=== PATIENT | female | born 1970 | race Caucasian/White ===

== ENCOUNTER → 2018-01-23 12:26 | Outpatient (CLI) | payer OTHER, SELFPAY ==
--- NOTE | 2018-01-23 12:30 | BI_ITS ---
MAMMOGRAPHY - BILATERAL SCREENING REASON FOR EXAM: Female, 47 years old. Routine annual screening examination. PERTINENT HISTORY: Mother with breast cancer. TECHNIQUE: Digital bilateral breast me (3D mammographic acquisition) in the CC and MLO projections. 2-D mediolateral oblique (MLO) and craniocaudad (CC) views of both breasts were obtained. CAD: Full Field Digital Mammography with Computer Added Detection was performed. COMPARISON: Comparison is made with prior study dated December 22, 2016 and October 01, 2010. FINDINGS: Breast Composition: The breasts are heterogeneously dense, which may obscure small masses. There are no dominant masses or suspicious calcifications. Stable appearance of the bilateral axillary lymph nodes. No other significant abnormalities are identified. There has been no significant change since the prior study. BI/SCREENING MAMM (CAD), BILAT IMPRESSION: Stable bilateral screening mammogram. Yearly follow-up mammogram recommended. (A) ASSESSMENT CATEGORY: BIRADS Category 2: Benign. A letter regarding these results will be sent to the patient by the facility within 30 days. Approximately 10% of breast cancers are not detected by mammography. A normal mammogram should not delay biopsy of a clinically suspicious abnormality. [id number] Electronically Signed: Dangelo Bernal MD at 15:28 EDT Tel [phone], Service support ,
== END ==
PROVIDERS: Family Provider Family Medicine; PCP Family Medicine; Visit Provider Obstetrics & Gynecology
DX: Z12.31 Encounter for screening mammogram for malignant neoplasm of breast (principal)
CPT/HCPCS: 77063; 77067

== ENCOUNTER → 2019-07-09 16:00 | Outpatient (CLI) | payer OTHER, SELFPAY ==
--- NOTE | 2019-07-09 16:02 | BI_ITS ---
MAMMOGRAPHY - BILATERAL SCREENING REASON FOR EXAM: Female, 49 years old. Routine annual screening examination. PERTINENT HISTORY: Mother with breast cancer. TECHNIQUE: Digital bilateral breast loren (3D mammographic acquisition) in the CC and MLO projections. 2-D mediolateral oblique (MLO) and craniocaudad (CC) views of both breasts were obtained. CAD: Full Field Digital Mammography with Computer Added Detection was performed. COMPARISON: Comparison is made with prior study dated January 23, 2018 and December 22, 2016. FINDINGS: Breast Composition: The breasts are heterogeneously dense, which may obscure small masses. There are no dominant masses or suspicious calcifications. Stable small benign-appearing bilateral axillary lymph nodes. No other significant abnormalities are identified. There has been no significant change since the prior study. BI/SCREEN MAMM (CAD) W/LOREN BILAT IMPRESSION: Stable bilateral screening mammogram. Yearly follow-up mammogram recommended. (A) ASSESSMENT CATEGORY: BIRADS Category 2: Benign. A letter regarding these results will be sent to the patient by the facility within 30 days. Approximately 10% of breast cancers are not detected by mammography. A normal mammogram should not delay biopsy of a clinically suspicious abnormality. [id number] Electronically Signed: Dangelo Bernal, at 8:30 EST , Service support ,
== END ==
PROVIDERS: Family Provider Family Medicine; PCP Family Medicine; Referring Provider Family Medicine; Visit Provider Family Medicine
DX: Z12.31 Encounter for screening mammogram for malignant neoplasm of breast (principal)
CPT/HCPCS: 77063; 77067

== ENCOUNTER → 2019-08-06 10:35 | Outpatient (CLI) | payer OTHER, SELFPAY ==
[2019-08-06 12:26] LABS: Absolute Lymphocyte Count 1.41 X10^3/uL (0.83-4.51); Absolute Neutrophil Count 3.9 X10^3/uL (2.0-7.7); Basophil# 0.04 X10^3/uL; Basophil% 0.7 % (0-1); Eosinophil# 0.06 X10^3/uL; Hematocrit 46.7 % (37-47); Lymphocyte # 1.41 X10^3/ul (4.0); Mean Corp Hgb Conc 32.1 g/dL (32-36); Mean Corpuscular Volume 90.2 fL (81-99); Mean Platelet Vol. 10.9 fl (6.2-12.0); Monocyte# 0.51 X10^3/uL; Monocyte% 8.7 % (0-10); NRBC Flagged by Analyzer 0 % (0-5); Neutrophil # 3.85 X10^3/uL (2.7-7.7); Neutrophil % 65.4 % (47-70); Platelet Count 300 K/mm3 (150-450); RBC Distribution Width CV 11.9 % (11.6-14.6); RBC Distribution Width SD 39.1 fl (35.1-43.9); Red Blood Count 5.18 M/mm3 (4.2-5.4); White Blood Count 5.9 K/mm3 (4.4-11.0)
[2019-08-06 13:08] LABS: ALB/GLOB Ratio 0.8 RATIO (0.9-2.4); AST(SGOT) 21 U/L (15-37); Alanine Aminotransfer ALT/SGPT 31 U/L (13-56); Albumin, Serum 3.4 g/dL (3.2-5.0); Alkaline Phosphatase 65 U/L (45-117); Anion Gap 5 (5-15); BUN 12 mg/dL (7-18); BUN/Creat Ratio 13.2 RATIO (10-20); Calcium,Total 8.8 mg/dL (8.5-10.1); Chloride 104 mmol/L (98-107); Cholesterol 239 mg/dL (200); Creatinine, Serum 0.91 mg/dL (0.55-1.02); EST Glomerular Filtration Rate 70 mL/min (>60); Est Glom Filt Rate - Afr Amer 84 mL/min (>60); Globulin 4.5 g/dL (2.2-4.2); Glucose 91 mg/dL (74-106); High Density Lipoprotein 52 mg/dL; Potassium 4.2 mmol/L (3.5-5.1); Protein, Total 7.9 g/dL (6.4-8.2); Sodium Level 135 mmol/L (136-145); Triglycerides 146 mg/dL; Very Low Density Lipoprotein 29 mg/dL (5-40)
== END ==
PROVIDERS: Family Provider Family Medicine; PCP Family Medicine; Visit Provider Family Medicine
DX: Z00.00 Encounter for general adult medical examination without abnormal findings (principal); E78.5 Hyperlipidemia, unspecified; R53.83 Other fatigue
CPT/HCPCS: 36415; 80053; 80061; 85025

== ENCOUNTER → 2020-10-07 11:31 | Outpatient (CLI) | payer OTHER, SELFPAY ==
--- NOTE | 2020-10-07 11:33 | BI_ITS ---
MAMMOGRAPHY - BILATERAL SCREENING REASON FOR EXAM: Female, 50 years old. Routine annual screening examination. PERTINENT HISTORY: Mother with breast cancer. TECHNIQUE: Digital bilateral breast loren (3D mammographic acquisition) in the CC and MLO projections. 2-D mediolateral oblique (MLO) and craniocaudad (CC) views of both breasts were obtained. CAD: Full Field Digital Mammography with Computer Added Detection was performed. COMPARISON: Comparison is made with prior study dated 07/09/2019 and 01/23/2018. FINDINGS: Breast Composition: The breasts are heterogeneously dense, which may obscure small masses. There are no dominant masses or suspicious calcifications. Stable small benign-appearing bilateral axillary lymph nodes. No other significant abnormalities are identified. There has been no significant change since the prior study. BI/SCRN MAMM (CAD)W/LOREN BILAT IMPRESSION: Stable bilateral screening mammogram. Yearly follow-up mammogram recommended. (A) ASSESSMENT CATEGORY: BIRADS Category 2: Benign. A letter regarding these results will be sent to the patient by the facility within 30 days. Approximately 10% of breast cancers are not detected by mammography. A normal mammogram should not delay biopsy of a clinically suspicious abnormality. [id number] Electronically Signed: Dangelo Bernal MD at 9:25 EDT , Service support ,
== END ==
PROVIDERS: PCP Family Medicine; Referring Provider Family Medicine; Visit Provider Family Medicine
DX: Z12.31 Encounter for screening mammogram for malignant neoplasm of breast (principal)
CPT/HCPCS: 77063; 77067

== ENCOUNTER → 2020-10-20 09:01 | Outpatient (CLI) | payer OTHER, SELFPAY ==
[2020-10-20 10:52] LABS: ALB/GLOB Ratio 0.8 RATIO (0.9-2.4); AST(SGOT) 18 U/L (15-37); Alanine Aminotransfer ALT/SGPT 23 U/L (13-56); Albumin, Serum 3.3 g/dL (3.2-5.0); Alkaline Phosphatase 74 U/L (45-117); Anion Gap 6 (5-15); BUN 12 mg/dL (7-18); BUN/Creat Ratio 15.1 RATIO (10-20); Calcium,Total 9.2 mg/dL (8.5-10.1); Chloride 101 mmol/L (98-107); Cholesterol 230 mg/dL (200); EST Glomerular Filtration Rate 81 mL/min (>60); Est Glom Filt Rate - Afr Amer 98 mL/min (>60); Globulin 4.2 g/dL (2.2-4.2); Glucose 100 mg/dL (74-106); High Density Lipoprotein 52 mg/dL; Potassium 3.8 mmol/L (3.5-5.1); Protein, Total 7.5 g/dL (6.4-8.2); Sodium Level 136 mmol/L (136-145); Triglycerides 212 mg/dL; Very Low Density Lipoprotein 42 mg/dL (5-40)
[2020-10-20 12:06] LABS: Absolute Lymphocyte Count 1.52 X10^3/uL (0.83-4.51); Absolute Neutrophil Count 2.8 X10^3/uL (2.0-7.7); Basophil# 0.04 X10^3/uL; Basophil% 0.8 % (0-1); Eosinophil# 0.09 X10^3/uL; Eosinophils% 1.8 % (0-5); Hematocrit 45.7 % (37-47); Hemoglobin 14.9 g/dL (12.0-15.0); Lymphocyte # 1.52 X10^3/ul (4.0); Lymphocyte % 30.8 % (19-41); Mean Corp Hgb Conc 32.6 g/dL (32-36); Mean Corpuscular Hgb 29.6 pg (27.0-32.0); Mean Corpuscular Volume 90.7 fL (81-99); Mean Platelet Vol. 10.9 fl (6.2-12.0); Monocyte# 0.48 X10^3/uL; Monocyte% 9.7 % (0-10); NRBC Flagged by Analyzer 0 % (0-5); Neutrophil # 2.79 X10^3/uL (2.7-7.7); Neutrophil % 56.7 % (47-70); Platelet Count 307 K/mm3 (150-450); RBC Distribution Width CV 11.6 % (11.6-14.6); RBC Distribution Width SD 38.3 fl (35.1-43.9); Red Blood Count 5.04 M/mm3 (4.2-5.4); White Blood Count 4.9 K/mm3 (4.4-11.0)
== END ==
LOC: LAB.FUTURE 09:02 → MTLAB 09:02
PROVIDERS: PCP Family Medicine; Referring Provider Family Medicine; Visit Provider Family Medicine
DX: Z00.00 Encounter for general adult medical examination without abnormal findings (principal); E78.5 Hyperlipidemia, unspecified; R53.83 Other fatigue
CPT/HCPCS: 36415; 80053; 80061; 85025

== ENCOUNTER 2021-10-12 10:57 | Outpatient (CLI) | payer OTHER, SELFPAY ==
--- NOTE | 2021-10-12 10:58 | BI_ITS ---
MAMMOGRAPHY - BILATERAL SCREENING 3-D TOMOSYNTHESIS REASON FOR EXAM: Female, 51 years old. SCREENING PERTINENT HISTORY: No significant family history. TECHNIQUE: 2-D mammograms and 3-D Tomosynthesis of the breast (s) were performed. CAD was performed. COMPARISON: 10/07/2020 FINDINGS: The breast composition is heterogeneously dense that can obscure small breast masses. Scattered benign calcifications are seen. No dominant mass. No suspicious calcifications right breast. Grouped punctate desiccation of the upper left breast and magnification views are recommended for further evaluation.. No architectural distortion is identified. There is no skin thickening or retraction. BI/SCRN MAMM (CAD)W/LOREN BILAT IMPRESSION: Grouped punctate calcifications in the upper outer quadrant left breast and magnification views recommended for further evaluation. ASSESSMENT CATEGORY: BIRADS Category 0: Incomplete. Need additional imaging evaluation as above. A letter regarding these results will be sent to the patient by the facility within 30 days. FOLLOW UP RECOMMENDATION: Additional imaging recommended as above. (E) Approximately 10% of breast cancers are not detected by mammography. A normal mammogram should not delay biopsy of a clinically suspicious abnormality. Electronically Signed: Gonsalo Bartholomew MD at 14:41 EDT ,
== END 2021-10-12 23:59 | disposition home or self-care (01) ==
LOC: OPBI 10:57
PROVIDERS: PCP Family Medicine; Referring Provider Obstetrics & Gynecology; Visit Provider Obstetrics & Gynecology
DX: Z12.31 Encounter for screening mammogram for malignant neoplasm of breast (principal)
CPT/HCPCS: 77063; 77067

== ENCOUNTER 2021-10-19 14:17 | Outpatient (CLI) | payer OTHER, SELFPAY ==
--- NOTE | 2021-10-19 14:21 | BI_ITS ---
MAMMOGRAPHY - UNILATERAL DIAGNOSTIC: LEFT BREAST REASON FOR EXAM: Female, 51 years old. Abnormal screening mammogram. PERTINENT HISTORY: Non-contributory. TECHNIQUE: Compression magnification spot views of the left breast were obtained. CAD: Full Field Digital Mammography with Computer Added Detection was performed. COMPARISON: Comparison is made with prior mammogram dated 10/12/2021. FINDINGS: Breast Composition: The breasts are heterogeneously dense, which may obscure small masses. The cluster of microcalcifications in the upper outer quadrant of the left breast was identified. Biopsy recommended. BI/DIAG MAMM W/CAD, UNILAT IMPRESSION: Biopsy of the cluster of microcalcifications in the upper-outer quadrant of left breast is recommended. ASSESSMENT CATEGORY: BIRADS Category 4: Suspicious - Biopsy Should Be Considered. A letter regarding these results will be sent to the patient by the facility within 30 days. Approximately 10% of breast cancers are not detected by mammography. A normal mammogram should not delay biopsy of a clinically suspicious abnormality. Electronically Signed: Dangelo Bernal MD at 15:14 EDT ,
== END 2021-10-19 23:59 | disposition home or self-care (01) ==
LOC: OPBI 14:18
PROVIDERS: PCP Family Medicine; Visit Provider Obstetrics & Gynecology
DX: R92.1 Mammographic calcification found on diagnostic imaging of breast (principal)
CPT/HCPCS: 77065

== ENCOUNTER 2021-10-26 09:24 | Outpatient (CLI) | payer OTHER, SELFPAY ==
[2021-10-26 12:23] LABS: Absolute Lymphocyte Count 1.32 X10^3/uL (0.83-4.51); Absolute Neutrophil Count 2.9 X10^3/uL (2.0-7.7); Basophil# 0.03 X10^3/uL; Basophil% 0.6 % (0-1); Eosinophil# 0.11 X10^3/uL; Eosinophils% 2.3 % (0-5); Hematocrit 43.1 % (37-47); Hemoglobin 14.2 g/dL (12.0-15.0); Lymphocyte # 1.32 X10^3/ul (0.83-4.51); Lymphocyte % 27.4 % (19-41); Mean Corp Hgb Conc 32.9 g/dL (32-36); Mean Corpuscular Hgb 28.8 pg (27.0-32.0); Mean Corpuscular Volume 87.4 fL (81-99); Mean Platelet Vol. 11.3 fl (6.2-12.0); Monocyte# 0.47 X10^3/uL; Monocyte% 9.8 % (0-10); NRBC Flagged by Analyzer 0 % (0-5); Neutrophil # 2.88 X10^3/uL (2.7-7.7); Neutrophil % 59.7 % (47-70); Platelet Count 298 K/mm3 (150-450); RBC Distribution Width CV 12.1 % (11.6-14.6); RBC Distribution Width SD 38.8 fl (35.1-43.9); Red Blood Count 4.93 M/mm3 (4.2-5.4); White Blood Count 4.8 K/mm3 (4.4-11.0)
[2021-10-26 12:38] LABS: ALB/GLOB Ratio 0.8 RATIO (0.9-2.4); AST(SGOT) 17 U/L (15-37); Alanine Aminotransfer ALT/SGPT 21 U/L (13-56); Albumin, Serum 3.3 g/dL (3.2-5.0); Alkaline Phosphatase 70 U/L (45-117); Anion Gap 5 (5-15); BUN 8 mg/dL (7-18); BUN/Creat Ratio 9.1 RATIO (10-20); Calcium,Total 9.1 mg/dL (8.5-10.1); Chloride 106 mmol/L (98-107); Cholesterol 225 mg/dL (200); Creatinine, Serum 0.88 mg/dL (0.55-1.02); EST Glomerular Filtration Rate 72 mL/min (>60); Est Glom Filt Rate - Afr Amer 87 mL/min (>60); Globulin 4.1 g/dL (2.2-4.2); Glucose 99 mg/dL (74-106); High Density Lipoprotein 48 mg/dL; Potassium 4.1 mmol/L (3.5-5.1); Protein, Total 7.4 g/dL (6.4-8.2); Sodium Level 140 mmol/L (136-145); Triglycerides 156 mg/dL; Very Low Density Lipoprotein 31 mg/dL (5-40)
== END 2021-10-26 23:59 | disposition home or self-care (01) ==
LOC: MTLAB 09:24
PROVIDERS: PCP Family Medicine; Referring Provider Family Medicine; Visit Provider Family Medicine
DX: Z00.00 Encounter for general adult medical examination without abnormal findings (principal)
CPT/HCPCS: 36415; 80053; 80061; 85025

== ENCOUNTER 2021-11-02 07:42 | Outpatient (CLI) | payer OTHER, SELFPAY ==
--- NOTE | 2021-11-02 | IMM_PTH ---
PATIENT: MELANIE CLARK LOC: [facility] U#:[id number] AGE/SX: 51/F ROOM: RE11/02/[address]: Dr. Magdiel Holm MD : 1970 BED: DIS: 11/02/2021 SPEC #: [id number] RECD: 11/03/21 12:42 STATUS: LAMONT REQ #: [id number] ELLI: 11/02/21 00:[address]: Magdiel Holm DEPT: IMMUNOHISTOCHEMISTRY RECD BY: Renée So ENTERED: 11/03/21 12:47 SP TYPE: IMMUNO OTHR DR: Dr. Jessica Miller DO Tissues: Left breast, NOS Procedures: CALPONIN-1 (add) CK5-6 (add) CK8 (add) E-CAD (add) HER2 IESHA (add) KI-67 (add) P53 (add) TN (add) P40 (add) ER (initial) PHYSICIAN & [address] [address] SPECIMEN INFORMATION: Tissue Source: Left breast Clinical Info: Left breast microcalcifications UOQ Specimen Number: [id number] CPT code: 68411, 96144 x6, 10728 x3 METHODOLOGY: Deparaffinized sections of prefer/formalin-fixed tissue or PAP/DQ stained slides are incubated with monoclonal/polyclonal antibodies/oligonucleotide probes. Localization is made via biotin free immunoperoxidase method. Appropriate controls are performed and reacted as expected. Results on target cell population are indicated in the following table: RESULTS: ANTIBODY / CLONE RESULT P53 (DO-7) positive, rare cells Ki-67 (30-9) positive, 5% CK8 (22ykfuY14) positive CK5-6 (D5 & 1684) * Calponin-1 (DS421V) * P40 (BC28) * E-Cad (ECH-6) positive MORPHOMETRIC ANALYSIS ER (clone 6F11) positive (>95%, strong intensity) TN (clone 16/1E2) positive (>95%, strong intensity) Her-2Neu (clone CB11) negative (0) The prognostic test for HER2 is performed on formalin-fixed paraffin embedded tissue. A 3+ (positive) staining pattern is defined as intense, homogeneous, complete, circumferential membranous staining in >10% of contiguous tumor cells. A similar weak (2+) staining pattern is interpreted as equivocal. HEENA follow-up testing is recommended for all equivocal cases. Positivity/negativity for ER/TN is reported if > or < 1% of the tumor cells are immuno- reactive, respectively. The ASCO/CAP criteria is used for scoring. Reference: Journal of Clinical Oncology, 2013; 31:1178-3560 & 2010; 16:2929-3003. Duration of fixation: 11 Hrs; Sample Adequate: Yes. These assays have not been validated on decalcified tissues. Results should be interpreted with caution given the likelihood of false negativity on decalcified specimens. These tests were developed and their performance characteristics determined by [facility]. They may not have been cleared or approved by the U.S. Food and Drug Administration. The FDA has determined that such clearance or approval is not necessary. The above immunohistochemical/dualISH markers are ordered and reviewed by the Pathologist. INTERPRETATION: Left breast, upper outer quadrant microcalcifications, stereotactic core biopsy: Ductal carcinoma in situ. AM:milana 11/04/2021 *?Basal cells are highlighted.
--- NOTE | 2021-11-02 08:20 | BRBX_PTH ---
PATIENT: MELANIE CLARK LOC: [facility] U#:[id number] AGE/SX: 51/F ROOM: RE11/02/[address]: Dr. Magdiel Holm MD : 1970 BED: DIS: 11/02/2021 SPEC #: [id number] RECD: 11/02/21 08:53 STATUS: LAMONT REMarii #: [id number] ELLI: 11/02/21 08:[address]: Magdiel Holm DEPT: SURGICAL PATHOLOGY RECD BY: Otilia Mishra ENTERED: 11/02/21 12:29 SP TYPE: BREAST BX OTHR DR: Dr. Jessica Miller DO Tissues: Left breast, NOS Procedures: Surgery Specimen Level IV HEADER OPERATION: Left breast stereotactic needle core biopsy PRE-OP DIAGNOSIS: Left breast microcalcifications UOQ TISSUE SUBMITTED: Left breast core tissue ISCHEMIC TIME: 1 minute FIXATION TIME: 11 hours MICROSCOPIC DIAGNOSIS Left breast mass, stereotactic core biopsy: Ductal carcinoma in situ with the following characteristics: Nuclear Grade ? 3/3 Maximal length ? 8 mm Calcifications ? present Type ? cribriform and solid. See comment. AM:milana 11/03/2021 COMMENT ER/HI/Sml2tug studies are being performed on sections of tumor and the results from this study will be reported separately ([id number]). Case has been reviewed in consultation with Dr. Minor who concurs with the above diagnosis. IDC:SJ MICROSCOPIC DESCRIPTION Slides are reviewed. GROSS DESCRIPTION Received in fixative is one container labeled with the patient's name and designated left breast. The specimen consists of multiple irregular and elongated fragments of yellow-hicks soft tissue that in aggregate measure 2.5 x 2 x 0.2 cm. The specimen is totally submitted in one cassette. / AM:milana 11/02/2021 TC:0 CPT: 01022
--- NOTE | 2021-11-02 08:30 | PCM.OPRPT ---
Problems Associated Problem List Diagnoses (1) Breast calcification, left: Report of Operation Date of Procedure: 11/02/21 Pre-Operative Diagnosis: Microcalcifications of the left breast Post-Operative Diagnosis: Same Surgery/Procedure Performed:: Stereotactic guided core needle biopsy of the left breast with clip placement Specimen's removed: Left breast biopsy Description of Procedure: Patient was consented and then placed in the stereotactic table and compression views were obtained. The surgical calcifications were identified and targeted. Stereotactic views were obtained. Next the breast was prepped with Betadine and injected with local anesthetic. A small omaira was made with a scalpel. The needle was placed into the breast and several biopsies were obtained. The biopsy specimens were x-rayed and did contain the calcifications. Next the aperture was opened and a clip was placed into the breast. The needle was then removed and stereotactic views were obtained showing the clip in the biopsy cavity where the microcalcifications were. Next a Steri-Strip and bandage were placed over the breast and ice pack was applied. Patient tolerated the procedure well.
== END 2021-11-02 23:59 | disposition home or self-care (01) ==
LOC: BIRAD 07:42
PROVIDERS: PCP Family Medicine; Visit Provider Surgery
DX: D05.12 Intraductal carcinoma in situ of left breast (principal)
CPT/HCPCS: 19081; 88305; 88341; 88342; J7050; A4648

== ENCOUNTER 2021-11-23 06:53 | Day surgery (SDC) | payer OTHER, SELFPAY ==
[2021-11-23] VITALS (7 sets, daily range): BP systolic 147–187; BP diastolic 71–95; PULSE 80–87; RESP 16–18; TEMP 36.6–37.7; O2SAT 92–100; BMI 50.6
--- NOTE | 2021-11-23 | BREAST_PTH ---
PATIENT: MELANIE CLARK [place] [facility] [id number] AGE/SX: 51/F ROOM: RE11/23/[address]: Dr. Magdiel Holm MD : 1970 BED: DIS: 11/23/2021 SPEC #: [id number] RECD: 11/23/21 09:16 STATUS: LAMONT CROUCHMarii #: [id number] ELLI: 11/23/21 00:[address]: Magdiel Holm DEPT: SURGICAL PATHOLOGY RECD BY: Renée So ENTERED: 11/23/21 09:48 SP TYPE: BREAST OTHR DR: Dr. Jessica Miller, DO Tissues: Left breast, NOS Procedures: Surgery Specimen Level V HEADER OPERATION: Left breast partial mastectomy, needle localization PRE-OP DIAGNOSIS: DCIS of breast TISSUE SUBMITTED: Left breast mass, long stitch - lateral, short stitch - superior MICROSCOPIC DIAGNOSIS Left breast mass, needle localization, partial mastectomy: Ductal carcinoma in situ. See cancer summary in the comment section. SJ:rg 11/26/2021 COMMENT BREAST CANCER SUMMARY Procedure - excision (partial mastectomy) with needle localization Specimen laterality - left Tumor site ? upper outer quadrant as per clinical information. Tumor size (extent of DCIS) ? ductal carcinoma in situ involves 50% of the specimen examined. It is present in the sections examined adjacent to the biopsy cavity and away from it. The largest focus of ductal carcinoma in situ measures 2.5 cm in greatest dimension (measured microscopically). Number of blocks with DCIS ? 18 Number of blocks examined ? 18 Histologic type ? ductal carcinoma in situ Architectural pattern ? cribriform and solid Nuclear grade - grade 2-3 Necrosis - present, focal (single cell necrosis) Margin ? DCIS is present at the inferior margin. DCIS is <1 mm from the anterior, superior and posterior margins. Regional lymph nodes ? None submitted or found. Distant metastasis ? not applicable Additional pathologic findings ? intraductal hyperplasia with focal atypia. - Changes consistent with previous biopsy site. Ancillary Studies: Previously performed on same tumor ([id number] / [id number]) ER: positive (>95%, strong intensity) NV: positive (>95%, strong intensity) Dxg4aui: negative (0) Microcalcifications ? present in DCIS. Clinical History - Please make reference to previous specimen ([id number]) left breast mass, stereotactic core biopsy with diagnosis of ductal carcinoma in situ. Radiologic findings ? left breast microcalcification, upper outer quadrant. PATHOLOGIC STAGE: pTis(DCIS) pNx pMx The above summary is in compliance with [employer] of [place] Path[employer] (CAP) Cancer Protocols Checklist and [place] Joint Committee on Cancer (AJCC), Staging Manual, 8th Ed. Clinical correlation and appropriate follow up are necessary. MICROSCOPIC DESCRIPTION Slides are reviewed. GROSS DESCRIPTION Received fresh then post-fixed in formalin labeled with the patient's name is a specimen designated left breast mass. The specimen consists of a piece of fibroadipose tissue with needle localization measuring 7 x 7.5 x 3 cm. The specimen is oriented as follows: long stitch - lateral, short stitch - superior. The specimen is inked as follows: anterior - yellow, posterior - black, superior - blue, inferior - green, medial - red and lateral - orange. Serial sections reveal a biopsy cavity with indurated mass around it measuring 3 x 1.5 x 1.5 cm. This area is close to anterior and posterior margins. Sections of the rest of the specimen reveal hicks-yellow adipose cut surfaces mixed with hicks-white fibrous areas. [employer]ist sections are submitted in 18 cassettes as follows: 1 - perpendicular superior, inferior, medial and lateral margins, 28??inked biopsy cavity with surrounded indurated area, entirely submitted, 9-18 - healthcare representative sections from the other area. Sections are submitted after additional fixation. / SJ:milana 11/24/2021 TC:0 [facility]: [id number]
--- NOTE | 2021-11-23 06:58 | EKG12_ITS ---
Test Reason : PRE OP Blood Pressure : / mmHG Vent. Rate : 085 BPM Atrial Rate : 085 BPM P-R Int : 160 ms QRS Dur : 078 ms QT Int : 352 ms P-R-T Axes : 062 013 031 degrees QTc Int : 418 ms Normal sinus rhythm Low voltage QRS Borderline ECG Confirmed by JORI KENT, NURA ([id number]), scientific publications editor THUAN PETER ([id number]) on 11/25/2021 10:08:50 AM Referred By: Magdiel Holm Confirmed By:NURA HSIEH MD
[2021-11-23] MEDS: Lactated Ringers 1,000 ML 15 ML IV ×2 (07:05→10:11)
--- NOTE | 2021-11-23 07:30 | BI_ITS ---
SURGICAL BREAST SPECIMEN RADIOGRAPH CLINICAL: Document presence of calcifications and marking clip in biopsy specimen. FINDINGS: Specimen shows presence of tissue clip marker. Pathology is pending and an addendum to the biopsy report will be performed after the final pathologic diagnosis is rendered. Electronically Signed: Gonsalo Bartholomew MD at 10:23 EDT , BI/Breast Biopsy Specimen
--- NOTE | 2021-11-23 08:14 | HP.PCM_ITS ---
History and Physical Date of Admission: 11/23/21 Intake Intake Visit Reasons: DISCUSS SURGERY Chief Complaint: abn mammo left Allergies No Known Allergies Allergy (Verified 11/10/21 14:19) Medications NK 10/27/21 [History Confirmed 11/10/21] [facility] Medical History (Updated 11/11/21 @ 08:[address] Magdiel Holm MD) Breast cancer Surgical History No pertinent past surgical history Family History Father Diabetes Heart disease CAD (coronary artery disease) CVA (cerebral vascular accident) Mother Breast cancer Diabetes CAD (coronary artery disease) Social History Smoking Status: Never smoker HPI HPI HPI: MELANIE CLARK, is a 51 F who presents to the office today for follow-up after breast biopsy. ROS General General: No weight change or fatigue HEENT HEENT: No difficulty swallowing Endo Endocrine: No thyroid disease Musc Musculoskeletal: No back problems or arthritis Cardio Cardiovascular: No pacemaker, heart disease, atrial fibrillation, high blood pressure, heart attack, heart stent, palpitations or chest pain Psych Psychiatric: No depression or anxiety Resp Respiratory: No shortness of breath, No cough, No COPD, No asthma and No emphysema Gastro Gastrointestinal: No abdominal pain, No nausea or vomiting, No diarrhea, No constipation, No blood in stool, No acid reflux, No hemorrhoids, No ulcers, No gallbladder problem and No black,tarry stools Ismael Hematologic: No blood thinners Exam Const General: cooperative Orientation: alert and oriented x3 HENUT Head: normal to inspection Neck Neck: normal visual inspection and full ROM Chest Chest palpation & inspection: normal inspection of the chest Resp Effort & Inspection: normal respiratory effort Auscultation: clear to auscultation bilaterally Cardio Rate: regular rate Rhythm: regular rhythm GI Inspection: non-distended Palpation: soft and nontender Skin General: no rashes or lesions noted Neuro General: patient alert and patient oriented x3 Extrem General: full ROM Psych Appearance: grossly normal Mental Status: mental status grossly normal Assessment and Plan Assessment and Plan (1) Ductal carcinoma in situ (DCIS) of left breast: Status: Acute Plan - Dr. Magdiel Holm MD: The patient stereotactic breast biopsy showed DCIS of the left breast. I discussed partial mastectomy with her. I discussed stereotactic guided wire localization as well. I did discuss the possibility of invasive cancer being found in the excision and this would necessitate sentinel lymph node biopsy in the future as well as possible reexcision for negative margins if needed. I discussed the procedure in detail. I discussed the risks including but not limited to bleeding, infection, hematoma formation, positive margins and need for reexcision. Magdiel Holm MD Pager: [facility] [address] [place] [address] [address] [place] [address] Office: I have re-examined the patient. There are no clinical changes since date of exam.
--- NOTE | 2021-11-23 08:23 | SUR.PREOP ---
pt refused test, anesthesia notified.
[2021-11-23] MEDS: Cefazolin 2 GM in 0.9% Normal Saline 100 ML IV (08:42)
--- NOTE | 2021-11-23 09:37 | PCM.OPRPT ---
Problems Associated Problem List Diagnoses (1) Ductal carcinoma in situ (DCIS) of left breast: Report of Operation Date of Procedure: 11/23/21 Pre-Operative Diagnosis: DCIS of the left breast Post-Operative Diagnosis: Same Surgery/Procedure Performed:: 1. Stereotactic guided wire localization of left breast 2. Left partial mastectomy Specimen's removed: Left breast excision Description of Procedure: Patient was brought to the stereotactic room and the left breast was imaged. The clip was localized and then stereotactic views were obtained. The skin was prepped and injected with local anesthetic. Guidewire was then placed and stereotactic views were obtained. Wire was then deployed and the needle was removed. Patient then had mammogram and was brought to surgery. Patient was brought to the operating room and general anesthesia was used. The left breast was prepped and draped in usual sterile fashion. Oscar was made in the superior lateral breast and injected with local anesthetic. An incision was then made with a scalpel and electrocautery was used to deepen the incision to the wire. The wire was brought into the incision. The wire was followed to its distal end and the area around it was excised. Dissection was carried using electrocautery. The mass was excised and marked with a long stitch lateral and short stitch superiorly. It was sent for x-ray and the did contain the clip and the entirety of the wire. The cavity was inspected and electro cautery was used to maintain hemostasis. There is good hemostasis and it was irrigated and suctioned dry. The incision was closed with interrupted 3-0 Vicryl suture in a running 4-0 Monocryl suture. Glue was applied. Patient tolerated the procedure was brought to PACU in stable condition. Admit VTE Documentation VTE Mechan Device Prophylaxis: SCD's
--- NOTE | 2021-11-23 09:42 | EX.PCM.DISCH ---
Discharge Instructions Procedure Breast Surgery Diet Discharge Diet: No restrictions Activity Discharge Activity: Return to Normal Activity and May Not Drive (for 2-3 days or while taking narcotic pain medications.) May shower in (days): 1 Dressing / Incision Call your doctor if your incision/area has: Continuous Slow Oozing, Sudden Increased Bleeding, Increased Pain/ Swelling, Increased Redness, Foul Smelling Discharge and Swelling at the incision site Call your doctor if you observe: Fever of 101 or Higher Suture Line Care: Avoid Pulling/Pushing and Avoid Pinching/Bending Cleanse incision/area with: Soap & Water Follow Up Care Please Follow Up With: Magdiel Holm MD When: Please call to schedule 2 week follow up appointment. [phone] Test Results: Test results from this visit will be discussed in further detail at your follow-up appointment, if applicable. Discharge Plan Admission Attending Provider: Magdiel Holm Primary Care Provider: Jessica Miller Discharge Orders/Prescriptions Prescriptions: New oxycodone-acetaminophen [Percocet] 5-325 mg tablet 1 tab PO Q4H PRN (Reason: pain) 5 Days Qty: 20 RF: 0 Referrals / Follow Up: Jessica Miller DO [Primary Care Provider] - Disposition Disposition (needs filled in before D/C Order can be placed): Home, Self Care
== END 2021-11-23 12:23 | disposition home or self-care (01) ==
LOC: SDC 06:54 → AC 06:56
PROVIDERS: PCP Family Medicine; Referring Provider Surgery; Visit Provider Surgery
PROC: (CPT 19301; principal; 2021-11-23 08:15)
DX: D05.12 Intraductal carcinoma in situ of left breast (principal); Z80.3 Family history of malignant neoplasm of breast
CPT/HCPCS: 19301; 00400; 19283 ×2; 19281; 76098; 88307; 93005; J7120; J2405

== ENCOUNTER 2022-01-07 14:27 | Observation (INO) | payer OTHER, SELFPAY ==
[2022-01-07] VITALS (11 sets, daily range): BP systolic 90–185; BP diastolic 64–103; PULSE 76–100; RESP 16–20; TEMP 36.2–37.2; O2SAT 94–100; BMI 50.8
--- NOTE | 2022-01-07 | IMM_PTH ---
PATIENT: MELANIE CLARK LOC: MS3 U#:[id number] AGE/SX: 51/F ROOM: NM313 RE01/07/[address]: Dr. Magdiel Holm MD : 1970 BED: 1 DIS: 01/08/2022 SPEC #: [id number] RECD: 01/12/22 13:43 STATUS: LAMONT REMarii #: [id number] ELLI: 01/07/22 00:[address]: Magdiel Holm DEPT: IMMUNOHISTOCHEMISTRY RECD BY: Renée So ENTERED: 01/12/22 13:43 SP TYPE: IMMUNO OTHR DR: Dr. Jessica Miller, DO Tissues: A - Axillary lymph node, NOS Procedures: CK7 (add) Pankeratin (initial) Pankeratin (add) PHYSICIAN & INSTITUTION [place] [address] SPECIMEN INFORMATION: Tissue Source: A ? 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 Localization is made via biotin free immunoperoxidase method. Appropriate controls are performed and reacted as expected. Results on target cell population are indicated in the following table: RESULTS: ANTIBODY / CLONE RESULT Block A1 AE1-3 (AE1/AE3/PCK26) negative CK7 (OV-TL12/30) negative Block A2 AE1-3 (AE1/AE3/PCK26) negative CK7 (OV-TL12/30) negative Block A3 AE1-3 (AE1/AE3/PCK26) positive, isolated tumor cells CK7 (OV-TL12/30) positive, isolated tumor cells Block A4 AE1-3 (AE1/AE3/PCK26) negative CK7 (OV-TL12/30) negative These tests were developed and their performance characteristics determined by [facility]. They may not have been cleared or approved by the U.S. Food and Drug Administration. The FDA has determined that such clearance or approval is not necessary. The above immunohistochemical/dualISH markers are ordered and reviewed by the Pathologist. INTERPRETATION: A. Left axillary sentinel lymph nodes, biopsy: One out of four lymph nodes positive for isolated tumor cells. See comment. SJ:milana 01/13/2022 Comment: Foci of isolated tumor cells consist of about 2 to 10 tumor cells clusters. Case has been reviewed in consultation with Dr. Hernández who concurs with the above diagnosis. IDC:AM
--- NOTE | 2022-01-07 | AXNB_PTH ---
PATIENT: MELANIE CLARK LOC: MS3 U#:[id number] AGE/SX: 51/F [place]OM[place] [facility] [place] RE01/07/[address]: Dr. Magdiel Holm MD : 1970 BED: 1 DIS: 01/08/2022 SPEC #: [id number] RECD: 01/07/22 13:18 STATUS: LAMONT GONZALEZ #: [id number] ELLI: 01/07/22 00:[address]: Magdiel Holm DEPT: SURGICAL PATHOLOGY RECD BY: Renée So ENTERED: 01/07/22 13:54 SP TYPE: AX NODE BX OTHR DR: Dr. Jessica Miller DO Tissues: A - Axillary lymph node, NOS B - Left breast, NOS Procedures: Frozen Section (charge) Frozen Section [facility] Surgery Specimen Level V HEADER OPERATION: Mastectomy with radiotracer identification, sentinel lymph nodes PRE-OP DIAGNOSIS: Ductal carcinoma in situ left breast TISSUE SUBMITTED: A ? Left axillary sentinel lymph nodes, FS, B ? Left breast mass, long stitch - lateral, short stitch - superior FROZEN SECTION DIAGNOSIS A. Left axillary sentinel lymph nodes, biopsy: Three out of three lymph nodes, negative for metastatic carcinoma. SJ:milana 01/07/2022 MICROSCOPIC DIAGNOSIS A. Left axillary sentinel lymph nodes, biopsy: One out of four lymph nodes positive for isolated tumor cells. See comment. B. Left breast mass, mastectomy: Ductal carcinoma in situ. See cancer summary in the comment section. SJ:milana 01/12/2022 COMMENT A. One more lymph node is identified in cassette 4. One out of four lymph nodes is positive for isolated tumor cells on immunohistochemical stains for cytokeratins ([id number]). DUCTAL CARCINOMA IN SITU SUMMARY: Procedure ? total mastectomy Specimen laterality - left Tumor site ? All four quadrants. Size (extent of DCIS) ? ductal carcinoma in situ is present in about 70% of the sections examined. The largest focus of DCIS measures 2 x 1.5 cm. DCIS is noted adjacent to the biopsy cavity and also away from it. Number of blocks with DCIS - 16 Number of blocks examined - 20 Histologic type ? ductal carcinoma in situ Architectural pattern ? cribriform, solid, intraductal papillary Histologic grade ? grade 2 (intermediate) Necrosis ? present, focal (single cell necrosis) Margins ? Margins are uninvolved by ductal carcinoma in situ. Ductal carcinoma in situ is 0.3 cm away from the closest superior margin. Regional lymph nodes: Total number of lymph nodes examined - 4 Number of sentinel lymph nodes examined - 4 Number of lymph nodes with isolated tumor cells ? 1 Number of lymph nodes with macrometastasis, micrometastasis ? 0 Size of largest metastatic deposits ? foci of isolated tumor cells consists of 2-10 tumor cells clusters. Extranodal extension -not identified. Distant metastasis ? not applicable Additional Pathologic Findings ? fibrocystic changes and intraductal hyperplasia with multifocal atypia. Ancillary Studies from previous specimen ([id number] / [id number]): ER ? positive (>95%, strong intensity) [place] - positive (>95%, strong intensity) Her2 atif ([facility]) ? negative (0) Microcalcifications ? present in DCIS and non-neoplastic tissue. Clinical history - Please make reference to previous specimens ([id number]) left breast mass, stereotactic core biopsy with diagnosis of ?ductal carcinoma in situ? and left breast mass, needle localization with partial mastectomy with diagnosis of ?ductal carcinoma in situ.? Radiologic findings ? left breast microcalcifications upper outer quadrant. PATHOLOGIC STAGE: pTis(DCIS) pN0 (i+), (sn) pMx The above summary is in compliance with [employer] [place] [employer] (CAP) Cancer Protocols Checklist and [place] Joint Committee on Cancer (AJCC), Staging Manual, 8th Ed. Case has been reviewed in consultation with Dr. Hernández who concurs with the above diagnosis. IDC:AM MICROSCOPIC DESCRIPTION Slides are reviewed. GROSS DESCRIPTION A - Received fresh for frozen section diagnosis labeled with the patient's name is a specimen designated left axillary sentinel lymph nodes. The specimen consists of two pieces of hicks-yellow adipose tissue containing nodules consistent with lymph nodes measuring 1 x 1 x 0.5 cm and 2.5 x 2 x 1 cm. Three nodules consistent with lymph nodes are identified. The largest measures 1 cm in greatest dimension. The entire specimen is submitted in four cassettes as follows: 1-3 ? frozen section, each cassette containing one lymph node, 4 ? rest of the specimen. / SJ: 01/07/2022 B - Received fresh labeled with the patient's name is a specimen designated left breast mass, long stitch - lateral, short stitch - superior. The specimen consists of a mastectomy specimen consisting of breast tissue with overlying skin ellipse. The breast tissue measures 25 x 20 x 6 cm and the skin ellipse measures 24 x 10.5 cm. The specimen is inked as follows: posterior - black, superior - blue, inferior - green, medial - red and lateral - orange. Serial sections reveal a biopsy cavity in the central upper portion filled with liquefied bloody fluid measuring 4.5 x 4 x 3 cm. No obvious mass is noted. Sections of the rest of the specimen reveal hicks-yellow adipose cut surfaces mixed with hicks-white fibrous area. More dictation will follow after fixation. / SJ: 01/07/2022 The biopsy cavity is 1 cm away from the closest superior margin and 2.5 cm away from the second closest posterior margin. Sections are submitted after additional fixation. / SJ: 01/08/2022 Acoustical Tile Carpenters Supervisor sections are submitted in 20 cassettes as follows: 1 - nipple, entirely submitted, 2??perpendicular medial and lateral margins and skin, 3 - perpendicular posterior and inferior margins, 413 - biopsy cavity with adjacent tissue, a few of the blocks also contain the closest superior margin, 1420 - sales account representative sections adjacent to and away from the biopsy cavity. / SJ: 01/11/2022 TC:0 CPT: 97435 x2, 04289, 45075
[2022-01-07] MEDS: Lactated Ringers 1,000 ML 15 ML IV ×2 (09:25→12:45)
--- NOTE | 2022-01-07 09:30 | NM_ITS ---
PROCEDURE: NUCLEAR MEDICINE Injection [place] Node - LEFT breast(s). REASON FOR EXAM: Female, 51 years old. Left breast cancer. TECHNIQUE: [place]arack node localization using radionuclide methods of the LEFT breast(s) was performed following subcutaneous administration of 1.1 mCi of of sulfur colloid Tc-99m. FINDINGS: 1.1 mCi of technetium labeled sulfur colloid was injected subcutaneously in the upper pericardial region of the breast. NM/Lymph Node Injection Only IMPRESSION: Subcutaneous injection of 1.1 mCi of technetium labeled sulfur colloid for sentinel node imaging. Electronically Signed: Dangelo Bernal MD at 10:11 EDT ,
--- NOTE | 2022-01-07 09:41 | SUR.PREOP ---
RADIOLOGY INTO PATIENT'S ROOM TO INJECT THE RADIOTRACER.
[2022-01-07 09:57] LABS: Internal QC Validated? YES +Cl - CLEAR BKGD; Pregnancy, Serum, hCG Quali. NEGATIVE Negative
--- NOTE | 2022-01-07 12:06 | HP.PCM_ITS ---
History and Physical Date of Admission: 01/07/22 Intake Intake Visit Reasons: 11/23 BREAST SURGERY Chief Complaint: F/U Left Breast Partial Mastectomy Program Research Specialist Required: No Is patient in pain?: No Allergies No Known Allergies Allergy (Verified 12/07/21 09:01) Subjective Details: Patient is doing well since surgery with no complaints Objective Details: Incision healing well Coding Level of Care Code Global Post Op Diagnoses Ductal carcinoma in situ (DCIS) of left breast D05.12 FOR[facility]LY [facility], [facility] Medical History Breast cancer Cancer Non-smoker Wears glasses Surgical History (Updated 12/07/21 @ 09:03 by Cuca Tuesday) History of partial mastectomy of left breast No pertinent past surgical history Family History Father Diabetes Heart disease CAD (coronary artery disease) CVA (cerebral vascular accident) Mother Breast cancer Diabetes CAD (coronary artery disease) Social History Smoking Status: Never smoker Assessment and Plan (No Qualifiers) Assessment and Plan (1) Ductal carcinoma in situ (DCIS) of left breast: Status: Acute Plan - Dr. Magdiel Holm MD: Had extensive DCIS of the left breast. Her partial mastectomy specimen showed a positive margin on one side and less than 1 mm margins on the other sides. I recommend mastectomy on the left with sentinel lymph node biopsy for her. Patient is very hesitant. I did offer her a chance to see oncology first to make sure they are agree with the plan and to reinforce this with her. Patient is agreeable to that plan and would like to see oncology for an opinion. Once she decides on surgical option and would like to proceed with mastectomy I will have her scheduled. I did discuss reconstruction and she would decline this. We discussed the risks of the operation such as bleeding, infection, seroma formation. I did discuss short-term observation with drain placement as well. Magdiel Holm MD Pager: [facility] [address] [place] [address], [address] [place] [address] Office: I have re-examined the patient. There are no clinical changes since date of exam. Patient has decided to proceed with mastectomy. I once again went over the entire procedure with her today and I discussed and answered any questions.
--- NOTE | 2022-01-07 13:41 | BI_ITS ---
SURGICAL BREAST SPECIMEN RADIOGRAPH CLINICAL: Document presence of mass in biopsy specimen. FINDINGS: Specimen shows presence of mass. Electronically Signed: Dangelo Bernal MD at 8:10 EDT , BI/Breast Biopsy Specimen IMPRESSION: undefined
[2022-01-07] MEDS: Bupivacaine Mpf 0.5% 30 ML VIAL (13:59)
--- NOTE | 2022-01-07 14:30 | PCM.OPRPT ---
Problems Associated Problem List Diagnoses (1) Ductal carcinoma in situ (DCIS) of left breast: Report of Operation Date of Procedure: 01/07/22 Pre-Operative Diagnosis: DCIS of the left breast Post-Operative Diagnosis: Same Surgery/Procedure Performed:: 1. Left axillary sentinel lymph node biopsy 2. Left mastectomy Specimen's removed: 1. Left breast 2. Left axillary sentinel lymph node Drains: GREGORIA to bulb suction Estimated Blood Loss (mL): 100 Description of Procedure: Patient was brought back to the operating room and general anesthesia was induced. 5 cc of Lymphazurin was injected in the retroareolar space in the left side followed by 5 cc of saline. The breast was massaged for 5 minutes. The left breast and axilla were prepped and draped in usual sterile fashion. An elliptical incision was marked and then incised using a scalpel. Electrocautery was used to dissect laterally until the axilla was identified. The axillary fascia was incised. The axilla was inspected and blue lymph node was identified and removed with clips and the sharp dissection. Neoprobe 10-second count was performed. The axilla did not appear to have any more blue lymph nodes or radioactive lymph nodes. This was sent for pathology and pathology confirmed that they were noncancerous. Next the superior flap was raised using electrocautery and hemostasis was obtained. Dissection was carried superiorly until the upper margin of the breast was encountered and then down to the pectoralis muscle. Inferiorly and a flap was raised in the same fashion using electrocautery. Next the breast was removed from the pectoral muscle starting medially and working laterally including the anterior fascia. The breast was marked and sent for pathology. The cavity was irrigated and suctioned dry and hemostasis was obtained using electrocautery. Next a 15 Indonesian round drain was placed into the breast cavity and exited the lateral skin. It was sutured to the skin using 3-0 nylon suture. Next the incision was approximated using interrupted 3-0 Vicryl sutures. A running 4-0 Monocryl suture was then used to close the skin. Dermabond was used to close the incision. The drain was placed to bulb suction and bandages were applied. Patient was awoken and taken to PACU in stable condition. Admit VTE Documentation VTE Mechan Device Prophylaxis: SCD's
--- NOTE | 2022-01-07 14:35 | EX.PCM.DISCH ---
Discharge Instructions Procedure Breast Surgery Diet Discharge Diet: No restrictions Activity Discharge Activity: May Not Drive (for 2-3 days or while taking narcotic pain medications.) and May Shower Lifting Restrictions: 10 lbs for 2 weeks Dressing / Incision Call your doctor if your incision/area has: Continuous Slow Oozing, Sudden Increased Bleeding, Increased Pain/ Swelling, Increased Redness, Foul Smelling Discharge and Swelling at the incision site Call your doctor if you observe: Fever of 101 or Higher Suture Line Care: Avoid Pulling/Pushing and Avoid Pinching/Bending Cleanse incision/area with: Soap & Water Drain: Suction Additional Dressing/Incision Instructions:: Remove bulky dressing tomorrow. May leave any opsite dressing for 3-4 days. Keep dressing in place until your follow-up appointment. Record drainage output and bring to follow-up visit Follow Up Care Please Follow Up With: Magdiel Holm MD When: Please call to schedule 1 week follow up appointment. [phone] Test Results: Test results from this visit will be discussed in further detail at your follow-up appointment, if applicable. Discharge Plan Admission Attending Provider: Magdiel Holm Primary Care Provider: Jessica Miller Discharge Orders/Prescriptions Prescriptions: New oxycodone-acetaminophen [Percocet] 5-325 mg tablet 1 - 2 tab PO Q4H PRN (Reason: pain) 5 Days Qty: 30 RF: 0 No Action NK RF: 0 Referrals / Follow Up: Jessica Miller DO [Primary Care Provider] - Disposition Disposition (needs filled in before D/C Order can be placed): Home, Self Care
[2022-01-07] MEDS: 0.9% Normal Saline 1,000 ML 60 ML IV (17:22)
[2022-01-08 03:00] VITALS: BP 160/88; PULSE 83; RESP 16; TEMP 36.7; O2SAT 96
[2022-01-08 05:51] LABS: Absolute Lymphocyte Count 0.79 X10^3/uL (0.83-4.51); Absolute Neutrophil Count 9.9 X10^3/uL (2.0-7.7); Basophil# 0.01 X10^3/uL; Basophil% 0.1 % (0-1); Hematocrit 41.1 % (37-47); Lymphocyte # 0.79 X10^3/ul (0.83-4.51); Lymphocyte % 7.1 % (19-41); Mean Corp Hgb Conc 31.6 g/dL (32-36); Mean Corpuscular Hgb 28.9 pg (27.0-32.0); Mean Corpuscular Volume 91.3 fL (81-99); Mean Platelet Vol. 10.8 fl (6.2-12.0); Monocyte# 0.45 X10^3/uL; NRBC Flagged by Analyzer 0 % (0-5); Neutrophil # 9.87 X10^3/uL (2.7-7.7); Neutrophil % 88.3 % (47-70); Platelet Count 336 K/mm3 (150-450); RBC Distribution Width SD 40.5 fl (35.1-43.9); White Blood Count 11.2 K/mm3 (4.4-11.0)
[2022-01-08 06:12] LABS: Anion Gap 5 (5-15); BUN 12 mg/dL (7-18); BUN/Creat Ratio 14.8 RATIO (10-20); Calcium,Total 8.7 mg/dL (8.5-10.1); Chloride 107 mmol/L (98-107); Creatinine, Serum 0.81 mg/dL (0.55-1.02); EST Glomerular Filtration Rate 79 mL/min (>60); Est Glom Filt Rate - Afr Amer 95 mL/min (>60); Estimated Creatinine Clearance 64.26 ml/min; Glucose 135 mg/dL (74-106); Potassium 4.2 mmol/L (3.5-5.1); Sodium Level 138 mmol/L (136-145)
--- NOTE | 2022-01-08 06:58 | NURSING ---
Surgeon in to see patient, 15 ml was emptied from GREGORIA drain, incision was assessed. Telfa dsg applied under binder bra. Patient will dc home this am.
--- NOTE | 2022-01-08 07:25 | PN.SURG_ITS ---
Subjective Subjective Patient seen and examined during AM rounds. She is found sitting up out of bed in a chair. She denies any significant discomfort and states that this recovery has been on par with her prior operation. Blood pressure was noted to be elevated, which she states this happens commonly when she is in a medical setting. She asks to know when she may be discharged home. Nursing reports total drain output for the past 12 hours has been 35 mL. Objective Data Objective Data Vital Signs: Vital Signs Temp Pulse Resp BP Pulse Ox 98.1 F 83 16 160/88 H 96 01/08/22 03:00 01/08/22 03:00 01/08/22 03:00 01/08/22 03:00 01/08/22 03:00 Oxygen Flow Rate (L/min) 6 Oxygen Delivery Method Room Air Weight: 277 lb 8.992 oz Body Mass Index (BMI) 50.8 Intake & Output: Intake and Output for Last 24 Hours 01/06/22 01/07/22 01/08/22 23:59 23:59 23:59 Intake Total 1669.75 / 2069.75 1222 / 1222 Output Total 130 / 130 915 / 915 Balance 1539.75 / 1939.75 307 / 307 Lab / Micro Data Result Diagrams: 01/08/22 04:55 01/08/22 04:55 Labs: Laboratory Results - last 24 hr 01/07/22 09:30: Serum , Qual NEGATIVE 01/08/22 04:55: WBC 11.2 H, RBC 4.50, Hgb 13.0, Hct 41.1, MCV 91.3, MCH 28.9, MCHC 31.6 L, RDW Std Deviation 40.5, RDW Coeff of Fauzia 12.0, Plt Count 336, MPV 10.8, Immature Gran % (Auto) 0.500, Neut % (Auto) 88.3 H, Lymph % (Auto) 7.1 L, [place] % (Auto) 4.0, Eos % (Auto) 0.0, Baso % (Auto) 0.1, Absolute Neuts (auto) 9.9 H, Absolute Lymphs (auto) 0.79 L, Nucleated RBC % 0 01/08/22 04:55: Sodium 138, Potassium 4.2, Chloride 107, Carbon Dioxide 26.0, Anion Gap 5, BUN 12, Creatinine 0.81, Estim Creat Clear Calc 64.26, Est GFR (MDRD) Af Amer 95, Est GFR (MDRD) Non-Af 79, BUN/Creatinine Ratio 14.8, Glucose 135 H, Calcium 8.7 Radiography Diagnostic Testing: Radiology Impression [place] Node 01/07/22 09:30 IMPRESSION: Subcutaneous injection of 1.1 mCi of technetium labeled sulfur colloid for sentinel node imaging. Electronically Signed: Dangelo Bernal MD at 10:11 EDT , Physical Exam Const no apparent distress Chest Chest Narrative: Slight ecchymosis along the patient's surgical flaps, with crusting of blood along the incision closure. Otherwise there is no underlying evidence of hematoma or fluid collection. Left-sided GREGORIA drain appropriate with thin serosanguineous output. Assessment & Plan Assessment/Plan (1) S/P left mastectomy: PLAN: Patient postoperative day 1 from left mastectomy for extensive DCIS. Patient recovering well with good pain control. Expresses comfort with drain management. Therefore we will discharge according to Dr. Holm's instructions and keep follow-up as previously arranged.
[2022-01-08 08:32] VITALS: BP 167/85; PULSE 90; RESP 16; TEMP 36.8; O2SAT 96
== END 2022-01-08 09:57 | disposition home or self-care (01) ==
LOC: SDC 16:06 → MS3 16:06
PROVIDERS: Anesthesiology; Admitting Provider Surgery; PCP Family Medicine; Referring Provider Surgery; Visit Provider Surgery
PROC: (CPT 19307; principal; 2022-01-07 12:20)
DX: D05.12 Intraductal carcinoma in situ of left breast (principal); Z80.3 Family history of malignant neoplasm of breast
CPT/HCPCS: 38525; 19303; 00400; 36415; 38792; 76098; 80048; 84703; 85025; 88305; 88307; 88331; 88332; 88341; 88342; 99218; 99251; A9541; J7030; J7120; G0378; G0463; J2405; Q9968

== ENCOUNTER → 2022-02-04 | Outpatient (CLI) | payer OTHER, SELFPAY ==
--- NOTE | 2022-02-04 11:00 | BD_ITS ---
STUDY: DUAL ENERGY X-RAY ABSORPTIOMETRY / DXA REASON FOR EXAM: Female, 52 years old. Screening -- BREAST CANCER TECHNIQUE: Bone Mineral Density (BMD) measurements of lumbar spine and bilateral hips were obtained. COMPARISON: None. FINDINGS: Lumbar Spine (L1-L4): g/cm2 (1.019) / T-score (-0.3) / Z-score (0.7) Findings are suggestive of normal bone density with a low fracture risk. Left Femur Total: g/cm2 (1.140) / T-score (1.6) / Z-score (2.2) Left Femoral Neck: g/cm2 (0.813) / T-score (-0.3) / Z-score (0.6) Right Femur Total: g/cm2 (1.105) / T-score (1.3) / Z-score (1.9) Right Femoral Neck: g/cm2 (0.777) / T-score (-0.7) / Z-score (0.3) BD/Dexa Bone Density Study IMPRESSION: The patient is considered normal as outlined below according to World [place] Organization (WHO) criteria with a low fracture risk. Reference Information: The T-score is the number of standard deviations above or below the standard which is normal for young adults at their peak bone mineral density. The World Health Organization (WHO) interprets the T-scores as follows: Above -1 Normal bone density Between -1 and -2.5 Osteopenia Equal to / or below -2.5 Osteoporosis As a practical clinical guideline, osteopenia may be graded as follows: Mild -1 through -1.5 Moderate -1.6 through -2.0 Severe -2.1 through -2.4 The Z-score is the number of standard deviations above or below age-matched controls. A Z-score of less than -1.5 would be considered abnormal. References: 1. NIH Osteoporosis and Related Bone Diseases www osteo.org 2. International Society for Clinical Densitometry www iscd.org 3. National Osteoporosis Foundation www nof.org Electronically Signed: Dangelo Bernal MD at 12:39 EDT ,
== END | disposition home or self-care (01) ==
LOC: OPBD 10:36
PROVIDERS: PCP Family Medicine; Visit Provider Internal Medicine Medical Oncology
DX: M85.80 Other specified disorders of bone density and structure, unspecified site (principal)
CPT/HCPCS: 77080

== ENCOUNTER → 2022-10-25 | Outpatient (CLI) | payer OTHER, SELFPAY ==
--- NOTE | 2022-10-25 10:28 | BI_ITS ---
MAMMOGRAPHY - BILATERAL SCREENING REASON FOR EXAM: Female, 52 years old. Routine annual screening examination. PERTINENT HISTORY: Personal history of breast cancer. Prior left lumpectomy and external dissection. Prior left stereotactic breast biopsy as well. Mother with breast cancer. TECHNIQUE: Digital bilateral breast loren (3D mammographic acquisition) in the CC and MLO projections. 2-D mediolateral oblique (MLO) and craniocaudad (CC) views of both breasts were obtained. CAD: Full Field Digital Mammography with Computer Added Detection was performed. COMPARISON: Comparison is made with prior examination October 12, 2021 and January 07, 2022. FINDINGS: Breast Composition: There are scattered areas of fibroglandular density. There are no dominant masses or suspicious calcifications. The patient is status post lumpectomy with post surgical changes in the left breast. Surgical clips are seen in the left axillary region. No other significant abnormalities are identified. BI/SCRN MAMM (CAD)W/LOREN BILAT IMPRESSION: Stable bilateral screening mammogram. Yearly follow-up mammogram recommended. (A) ASSESSMENT CATEGORY: BIRADS Category 2: Benign. A letter regarding these results will be sent to the patient by the facility within 30 days. Approximately 10% of breast cancers are not detected by mammography. A normal mammogram should not delay biopsy of a clinically suspicious abnormality. [id number] Electronically Signed: Dangelo Bernal MD at 14:06 EDT ,
== END | disposition home or self-care (01) ==
LOC: OPBI 10:26
PROVIDERS: PCP Family Medicine; Visit Provider Family Medicine
DX: Z12.31 Encounter for screening mammogram for malignant neoplasm of breast (principal); Z85.3 Personal history of malignant neoplasm of breast
CPT/HCPCS: 77063; 77067

== ENCOUNTER → 2022-11-01 | Outpatient (CLI) | payer OTHER, SELFPAY ==
[2022-11-01 16:16] LABS: Cholesterol 240 mg/dL (200); High Density Lipoprotein 48 mg/dL; Triglycerides 173 mg/dL; Very Low Density Lipoprotein 35 mg/dL (5-40)
== END | disposition home or self-care (01) ==
PROVIDERS: PCP Family Medicine; Referring Provider Family Medicine; Visit Provider Family Medicine
DX: Z00.00 Encounter for general adult medical examination without abnormal findings (principal)
CPT/HCPCS: 36415; 80061

== ENCOUNTER → 2023-03-14 | Outpatient (CLI) | payer SELFPAY ==
[2023-03-21 16:09] LABS: HPV APTIMA, High Risk Negative (Negative)
== END | disposition home or self-care (01) ==
PROVIDERS: PCP Family Medicine; Referring Provider Nurse Practitioner Women's Health; Visit Provider Nurse Practitioner Women's Health
DX: Z12.4 Encounter for screening for malignant neoplasm of cervix (principal)
CPT/HCPCS: 87624; 88175; G0145

== ENCOUNTER → 2023-03-26 | Outpatient (CLI) | payer SELFPAY ==
--- NOTE | 2023-03-26 10:27 | US_ITS ---
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 COMPARISON: None. FINDINGS: The uterus is anteverted and is in a midline position. The uterus measures 8.0 x 4.3 x 4.5 cm. Normal uterine cervix. The endometrium measures 4 mm in thickness, and is hyperechoic. There is no demonstrated endometrial mass. Hypoechoic uterine fundal myometrial fibroids measure 4.2 cm and 2. Centimeters, respectively. The right ovary measures 3.4 x 2.5 x 2.1 cm. There are multiple follicles of the right ovary without a dominant cyst. There is no visualized right adnexal mass or complex lesion. There is normal arterial and normal venous vascularity. The left ovary is not seen. There is no fluid in the cul-de-sac. US/Pelvic (Non ) IMPRESSION: 1. No endometrial masses. 2. Uterine myometrial fibroids. 3. Nonvisualized left ovary. Electronically Signed: Victor M Augustin (Brooks), at 21:13 EDT ,
--- NOTE | 2023-03-26 10:27 | US_ITS ---
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 COMPARISON: None. FINDINGS: The uterus is anteverted and is in a midline position. The uterus measures 8.0 x 4.3 x 4.5 cm. Normal uterine cervix. The endometrium measures 4 mm in thickness, and is hyperechoic. There is no demonstrated endometrial mass. Hypoechoic uterine fundal myometrial fibroids measure 4.2 cm and 2. Centimeters, respectively. The right ovary measures 3.4 x 2.5 x 2.1 cm. There are multiple follicles of the right ovary without a dominant cyst. There is no visualized right adnexal mass or complex lesion. There is normal arterial and normal venous vascularity. The left ovary is not seen. There is no fluid in the cul-de-sac. US/Transvaginal Non- IMPRESSION: 1. No endometrial masses. 2. Uterine myometrial fibroids. 3. Nonvisualized left ovary. Electronically Signed: Victor M Augustin (Brooks), at 21:13 EDT ,
== END | disposition home or self-care (01) ==
PROVIDERS: PCP Family Medicine; Referring Provider Nurse Practitioner Women's Health; Visit Provider Nurse Practitioner Women's Health
DX: N92.6 Irregular menstruation, unspecified (principal); D05.12 Intraductal carcinoma in situ of left breast; Z79.811 Long term (current) use of aromatase inhibitors
CPT/HCPCS: 76830; 76856

== ENCOUNTER → 2023-03-29 | Outpatient (CLI) | payer SELFPAY ==
--- NOTE | 2023-03-29 | EMB_PTH ---
PATIENT: MELANIE CLARK LOC: [facility] U#:[id number] AGE/SX: 53/F ROOM: RE03/29/[address]: ARAMIS Macdonald : 1970 BED: DIS: 03/29/2023 SPEC #: [id number] RECD: 03/29/23 17:04 STATUS: LAMONT REMarii #: [id number] ELLI: 03/29/23 00:[address]: Lissette Krishna NP DEPT: SURGICAL PATHOLOGY RECD BY: Otilia Mishra ENTERED: 03/30/23 11:36 SP TYPE: ENDOM BX/C KENIA DR: Dr. Jessica Miller DO Tissues: Endometrium, NOS Procedures: Surgery Specimen Level IV HEADER OPERATION: Endometrial biopsy PRE-OP DIAGNOSIS: Abnormal uterine bleeding TISSUE SUBMITTED: Endometrial tissue MICROSCOPIC DIAGNOSIS Endometrial biopsy: Secretory endometrium. YVAN:milana 03/31/2023 MICROSCOPIC DESCRIPTION Slides are reviewed. GROSS DESCRIPTION Received is one container labeled with the patient's name and not further designated. The specimen consists of multiple irregular fragments of pink soft tissue mixed with mucoid tissue that in aggregate measure 2.5 x 2.5 x 0.2 cm. The specimen is totally submitted in one cassette. / SJ:milana 03/30/2023 TC:4 CPT: 86302
== END | disposition home or self-care (01) ==
LOC: LABSPEC 03-30 11:31
PROVIDERS: PCP Family Medicine; Visit Provider Nurse Practitioner Women's Health
DX: N93.9 Abnormal uterine and vaginal bleeding, unspecified (principal)
CPT/HCPCS: 88305

== ENCOUNTER → 2023-10-31 | Outpatient (CLI) | payer OTHER, SELFPAY ==
--- NOTE | 2023-10-31 10:24 | BI_ITS ---
MAMMOGRAPHY - BILATERAL SCREENING REASON FOR EXAM: Female, 53 years old. Routine annual screening examination. PERTINENT HISTORY: Personal history of breast cancer. Prior left lumpectomy and partial left mastectomy. Mother with breast cancer. TECHNIQUE: Digital bilateral breast loren (3D mammographic acquisition) in the CC and MLO projections. 2-D mediolateral oblique (MLO) and craniocaudad (CC) views of both breasts were obtained. CAD: Full Field Digital Mammography with Computer Added Detection was performed. COMPARISON: Comparison is made with prior study dated October 25, 2022 and October 12, 2021.. FINDINGS: Breast Composition: There are scattered areas of fibroglandular density. There are no dominant masses or suspicious calcifications. The patient is status post lumpectomy in the deep axillary region of the left breast with resultant breast deformity. Surgical clips are also seen in the left axilla. No other significant abnormalities are identified. There has been no significant change since the prior study. BI/SCRN MAMM (CAD)W/LOREN BILAT IMPRESSION: Stable bilateral screening mammogram. Yearly follow-up mammogram recommended. (A) ASSESSMENT CATEGORY: BIRADS Category 2: Benign. A letter regarding these results will be sent to the patient by the facility within 30 days. Approximately 10% of breast cancers are not detected by mammography. A normal mammogram should not delay biopsy of a clinically suspicious abnormality. [id number] Electronically Signed: Dangelo Bernal MD at 9:30 EDT ,
== END | disposition home or self-care (01) ==
LOC: OPBI 10:22
PROVIDERS: PCP Family Medicine; Referring Provider Family Medicine; Visit Provider Family Medicine
DX: Z12.31 Encounter for screening mammogram for malignant neoplasm of breast (principal); Z85.3 Personal history of malignant neoplasm of breast; Z80.3 Family history of malignant neoplasm of breast; Z90.12 Acquired absence of left breast and nipple
CPT/HCPCS: 77063; 77067

== ENCOUNTER → 2023-12-12 | Outpatient (CLI) | payer OTHER, SELFPAY ==
[2023-12-12 18:26] LABS: Anion Gap 8 (5-15); BUN 11 mg/dL (7-18); BUN/Creat Ratio 12.5 RATIO (10-20); Calcium,Total 9.4 mg/dL (8.5-10.1); Chloride 101 mmol/L (98-107); Creatinine, Serum 0.88 mg/dL (0.55-1.02); EST Glomerular Filtration Rate 71 mL/min (>60); Est Glom Filt Rate - Afr Amer 86 mL/min (>60); Glucose 93 mg/dL (74-106); Potassium 3.9 mmol/L (3.5-5.1); Sodium Level 137 mmol/L (136-145)
== END | disposition home or self-care (01) ==
LOC: BFHLAB 16:17
PROVIDERS: PCP Family Medicine; Referring Provider Family Medicine; Visit Provider Family Medicine
DX: E78.5 Hyperlipidemia, unspecified (principal); Z51.81 Encounter for therapeutic drug level monitoring
CPT/HCPCS: 36415; 80048

== ENCOUNTER → 2024-10-31 | Outpatient (CLI) | payer OTHER, SELFPAY ==
--- NOTE | 2024-10-31 15:40 | BI_ITS ---
EXAM: SCRN MAMM (CAD)W/LOREN BILAT DATE: 10/31/2024 CLINICAL HISTORY: F, Age 54 y/o , SCREENING Personal history of breast cancer. Mother with breast cancer. Prior left lumpectomy. BREAST CANCER RISK ASSESSMENT: Not assessed. TECHNIQUE: Bilateral screening digital breast tomosynthesis with 2D and 3D images. Computer aided detection. COMPARISON: Prior exam(s) dated October 31, 2023.. FINDINGS: TISSUE DENSITY: The breast tissue is composed of scattered area of fibroglandular density. Bilateral Breast Mammographic Findings: No significant masses, calcifications or other abnormalities are identified. The patient is status post lumpectomy in the deep axillary region of the left breast with resultant postoperative scarring. Stable examination. BI/SCRN MAMM (CAD)W/LOREN BILAT IMPRESSION: Right Breast: BIRADS 1 NEGATIVE. Left Breast: BIRADS 2 BENIGN FINDING. OVERALL FINAL ASSESSMENT: BIRADS 2 BENIGN FINDING RECOMMENDATION: Routine annual follow-up in 1 Year A letter with findings and recommendations will be mailed to the patient. Reading Location: [place] [id number]
== END | disposition home or self-care (01) ==
LOC: OPBI 15:39
PROVIDERS: PCP Family Medicine; Referring Provider Family Medicine; Visit Provider Family Medicine
DX: Z12.31 Encounter for screening mammogram for malignant neoplasm of breast (principal); Z85.3 Personal history of malignant neoplasm of breast; Z80.3 Family history of malignant neoplasm of breast
CPT/HCPCS: 77063; 77067

== ENCOUNTER 2025-05-13 09:15 | Day surgery (SDC) | payer OTHER, SELFPAY ==
--- NOTE | 2025-04-29 13:48 | PAT.ANE_ITS ---
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 When Was Last Pacemaker Check QUESTION #4 FULL TEXT: You/Your Family Experience fever (hyperthermia) with Anesthesia Last Oral Intake Last Oral intake: Last Oral Intake NPO since Meds taken in AM with sips of water? Meds patient instructed to take am of surgery PONV PONV - manufacturing operations manager: PONV - manufacturing operations manager Female Yes 04/29/25 10:09 HX of Motion Sickness No 04/29/25 10:09 HX of N/V After Surgery No 04/29/25 10:09 Non-Smoker Yes 04/29/25 10:09 Duration of Surgery greater Yes 04/29/25 10:09 than 60 minutes Number of Risk Factors 3 04/29/25 10:09 PONV Score Moderate Risk 04/29/25 10:09 Height & Weight Height & Weight: Anesthesia: Height & Weight Height 5 ft 2 in 04/16/25 12:53 Respiratory Assessment Respiratory Assessment - manufacturing operations manager: Respiratory Tract Infection Hx - manufacturing operations manager Hx Respiratory Tract Infection No 04/29/25 10:09 STOP Sleep Apnea STOP Sleep Apnea - manufacturing operations manager: STOP Sleep Apnea - manufacturing operations manager Hx Hypertension Yes: CONTROLLED WITH MEDS 04/29/25 10:09 Hx Sleep Apnea No 04/29/25 10:09 CPAP BIPAP Do you snore loudly (louder No 04/29/25 10:09 than talking or can be heard Do you often feel tired/ No 04/29/25 10:09 fatigued/ sleepy during daytime? Has anyone observed you stop No 04/29/25 10:09 breathing during sleep? STOP Results Negative 04/29/25 10:09 QUESTION #5 FULL TEXT : Do you snore loudly (louder than talking or can be heard through closed doors)? Tobacco Use History Tobacco Use History - manufacturing operations manager: Tobacco Use History - manufacturing operations manager Tobacco Use Smoking Status Never smoker 04/29/25 10:09 Hx Tobacco Use No 04/29/25 10:09 Years Smoking Packs Smoked per Day Smoking Cessation Date was within the last 15 years Hx Smoking Cessation Date Hx Smoking Cessation Counseling Hematologic Medial History Hematologic Hx - manufacturing operations manager: Hematologic Medical Hx - cone chocolate dipper Hx of Blood Transfusion No 04/29/25 10:09 Hx of Transfusion in last 3 No 04/29/25 10:09 Months Date of Last Transfusion (if within last 3 months) Ever experience any problems No 04/29/25 10:09 with transfusion(s)? Specify any problems Hx of Preganancy in last 3 No 04/29/25 10:09 Months Nurse Filling Out Transfusion DSCHRIBER 04/29/25 10:09 & Questions: Date: 04/29/25 04/29/25 10:09 Time: 10:10 04/29/25 10:09 Patient unable to answer at this time (ie. confused, unrespo /Reproduction History /Reproductive History - manufacturing operations manager: /Reproductive Hx- manufacturing operations manager Hx Now No 04/29/25 10:09 Gestational Age (in weeks): EDC: Hx Hx Para Hx Section SAB No 04/29/25 10:09 PFSH Medical History Post-menopausal High cholesterol Leg cramps History of Holter monitoring Hypertension Umbilical hernia TIA (transient ischemic attack) FH: mastectomy Wears glasses Cancer Non-smoker Breast calcification, left Home Medications ?Medication ?Instructions ?Recorded ?Last Taken ?Type triamterene 37.5 1 cap PO DAILY 03/26/24 Unkn own History mg-hydrochlorothiazide 25 mg capsule anastrozole 1 mg tablet 1 mg PO DAILY #90 TABLETS Unknown Rx aspirin 81 mg tablet,delayed 81 mg PO QDAY 10/08/24 Un known History release atorvastatin 40 mg tablet 40 mg PO QHS 10/08/24 Unknow n History losartan 25 mg tablet 25 mg PO QDAY 10/08/24 Unkno wn History Allergy/AdvReac Type Severity Reaction Status Date / Time No Known Allergies Allergy Verified 04/29/25 10:07 Family History Father Diabetes Heart disease CAD (coronary artery disease) CVA (cerebral vascular accident) Mother Breast cancer Diabetes CAD (coronary artery disease) Surgical History S/P left mastectomy Hx of breast biopsy History of partial mastectomy of left breast Social History household members: spouse current occupational status: employed current occupation: [employer] Smoking Status: Never smoker alcohol intake: never substance use type: does not use seatbelt use: always do you feel safe at home: Yes additional social history: - Adolfo- Retired Recommendation Anesthesia Recommendation Anesthesia recommendation: F/U recommended (EKG) Follow up Details Additional Information Recommendation: Yes Additional Information Rec Details: EKg
--- NOTE | 2025-05-07 10:45 | EKG12_ITS ---
Test Reason : PREOP Blood Pressure : */* mmHG Vent. Rate : 67 BPM Atrial Rate : 67 BPM P-R Int : 162 ms QRS Dur : 78 ms QT Int : 366 ms P-R-T Axes : 61 10 31 degrees QTcB Int : 386 ms Normal sinus rhythm Low voltage QRS Borderline ECG Confirmed by JIAN KENT, ASHLEY ([id number]), editor continuity and script THUAN PETER ([id number]) on 05/07/2025 1:47:50 PM Referred By: Magdiel Holm Confirmed By: ASHLEY VILLAR MD
--- NOTE | 2025-05-07 15:32 | PAT.ANE_ITS ---
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 When Was Last Pacemaker Check QUESTION #4 FULL TEXT: You/Your Family Experience fever (hyperthermia) with Anesthesia Last Oral Intake Last Oral intake: Last Oral Intake NPO since Meds taken in AM with sips of water? Meds patient instructed to take am of surgery PONV PONV - clerical warehouseman: PONV - clerical warehouseman Female Yes 04/29/25 10:09 HX of Motion Sickness No 04/29/25 10:09 HX of N/V After Surgery No 04/29/25 10:09 Non-Smoker Yes 04/29/25 10:09 Duration of Surgery greater Yes 04/29/25 10:09 than 60 minutes Number of Risk Factors 3 04/29/25 10:09 PONV Score Moderate Risk 04/29/25 10:09 Height & Weight Height & Weight: Anesthesia: Height & Weight Height 5 ft 2 in 04/16/25 12:53 Respiratory Assessment Respiratory Assessment - clerical warehouseman: Respiratory Tract Infection Hx - clerical warehouseman Hx Respiratory Tract Infection No 04/29/25 10:09 STOP Sleep Apnea STOP Sleep Apnea - clerical warehouseman: STOP Sleep Apnea - clerical warehouseman Hx Hypertension Yes: CONTROLLED WITH MEDS 04/29/25 10:09 Hx Sleep Apnea No 04/29/25 10:09 CPAP BIPAP Do you snore loudly (louder No 04/29/25 10:09 than talking or can be heard Do you often feel tired/ No 04/29/25 10:09 fatigued/ sleepy during daytime? Has anyone observed you stop No 04/29/25 10:09 breathing during sleep? STOP Results Negative 04/29/25 10:09 QUESTION #5 FULL TEXT : Do you snore loudly (louder than talking or can be heard through closed doors)? 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 Specify any problems Hx of Preganancy in last 3 No 04/29/25 10:09 Months Nurse Filling Out Transfusion DSCHRIBER 04/29/25 10:09 & Questions: Date: 04/29/25 04/29/25 10:09 Time: 10:10 04/29/25 10:09 Patient unable to answer at this time (ie. confused, unrespo /Reproduction History /Reproductive History - clerical warehouseman: /Reproductive Hx- clerical warehouseman Hx Now No 04/29/25 10:09 Gestational Age (in weeks): EDC: Hx Hx Para Hx Section SAB No 04/29/25 10:09 PFSH Medical History Post-menopausal High cholesterol Leg cramps History of Holter monitoring Hypertension Umbilical hernia TIA (transient ischemic attack) FH: mastectomy Wears glasses Cancer Non-smoker Breast calcification, left Home Medications ?Medication ?Instructions ?Recorded ?Last Taken ?Type triamterene 37.5 1 cap PO DAILY 03/26/24 Unkn own History mg-hydrochlorothiazide 25 mg capsule anastrozole 1 mg tablet 1 mg PO DAILY #90 TABLETS Unknown Rx aspirin 81 mg tablet,delayed 81 mg PO QDAY 10/08/24 Un known History release atorvastatin 40 mg tablet 40 mg PO QHS 10/08/24 Unknow n History losartan 25 mg tablet 25 mg PO QDAY 10/08/24 Unkno wn History Allergy/AdvReac Type Severity Reaction Status Date / Time No Known Allergies Allergy Verified 04/29/25 10:07 Family History Father Diabetes Heart disease CAD (coronary artery disease) CVA (cerebral vascular accident) Mother Breast cancer Diabetes CAD (coronary artery disease) Surgical History S/P left mastectomy Hx of breast biopsy History of partial mastectomy of left breast Social History household members: spouse current occupational status: employed current occupation: [employer] Smoking Status: Never smoker alcohol intake: never substance use type: does not use seatbelt use: always do you feel safe at home: Yes additional social history: - Adolfo- Retired Audit: Pertinent Findings Pertinent Findings EKG Perinent findings: 05/07/2025. Normal sinus rhythm 67 bpm. Recommendation Anesthesia Recommendation Anesthesia recommendation: OPTIMIZED for anesthesia
[2025-05-13] VITALS (11 sets, daily range): BP systolic 141–161; BP diastolic 71–95; PULSE 74–88; RESP 16–18; TEMP 36.2–37; O2SAT 90–98; BMI 48.8
--- NOTE | 2025-05-13 09:42 | PCM.PRE.AN2 ---
ASA Classification* ASA Classification ASA Classification: 2 Assessment & Plan Anesthesia* Anesthesia Assessment Anesthesia Assessment: Discussed sedation and/or anesthesia options, risks, benefits, and alternatives with patient/parents/legal guardian/POA. Questions invited. The patient/parents/legal guardian/POA seems to understand and agrees to proceed with anesthesia plan. Reviewed the physical assessment, medical history, allergy history and patient home medications list prior to surgery/procedure/anesthetic and documented any changes. Performed airway and anesthesia risk assessments. Anesthesia Type Anesthesia Type: General Anesthesia Focused Assessment* Airway Assessment Mouth opens: >3 cm Mallampati Score: II Labs Anesthesia Preop lab: CBC WBC, (4.4-11.0) 5.4 K/mm3 04/08/25, 12:47 RBC, (4.2-5.4) 4.63 M/mm3 04/08/25, 12:47 Hgb, (12.0-15.0) 13.3 g/dL 04/08/25, 12:47 Hct, (37-47) 40.3 % 04/08/25, 12:47 Plt Count, (150-450) 349 K/mm3 04/08/25, 12:47 CHEMISTRY Potassium, (3.3-5.1) 4.1 mmol/L 04/08/25, 12:47 Sodium, (133-145) 137 mmol/L 04/08/25, 12:47 BUN, (4-19) 17 mg/dL 04/08/25, 12:47 Creatinine, (0.70-1.20) 1.22 mg/dL H 04/08/25, 12:47 Glucose, (70-99) 93 mg/dL 04/08/25, 12:47 COAG Pre-Assessment Diagnosis/Proposed Procedure Planned Operative Procedure(s): LAP ROBOTIC UMBILICAL HERNIA REPAIR WITH MESH Anesthesia History 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 When Was Last Pacemaker Check QUESTION #4 FULL TEXT: You/Your Family Experience fever (hyperthermia) with Anesthesia Last Oral Intake Last Oral intake: Last Oral Intake NPO since Meds taken in AM with sips of water? Meds patient instructed to take am of surgery PONV PONV - tinsmith helper: PONV - tinsmith helper Female Yes 04/29/25 10:09 HX of Motion Sickness No 04/29/25 10:09 HX of N/V After Surgery No 04/29/25 10:09 Non-Smoker Yes 04/29/25 10:09 Duration of Surgery greater Yes 04/29/25 10:09 than 60 minutes Number of Risk Factors 3 04/29/25 10:09 PONV Score Moderate Risk 04/29/25 10:09 Height & Weight Height & Weight: Anesthesia: Height & Weight Height 5 ft 2 in 04/16/25 12:53 Respiratory Assessment Respiratory Assessment - tinsmith helper: Respiratory Tract Infection Hx - tinsmith helper Hx Respiratory Tract Infection No 04/29/25 10:09 STOP Sleep Apnea STOP Sleep Apnea - tinsmith helper: STOP Sleep Apnea - tinsmith helper Hx Hypertension Yes: CONTROLLED WITH MEDS 04/29/25 10:09 Hx Sleep Apnea No 04/29/25 10:09 CPAP BIPAP Do you snore loudly (louder No 04/29/25 10:09 than talking or can be heard Do you often feel tired/ No 04/29/25 10:09 fatigued/ sleepy during daytime? Has anyone observed you stop No 04/29/25 10:09 breathing during sleep? STOP Results Negative 04/29/25 10:09 QUESTION #5 FULL TEXT : Do you snore loudly (louder than talking or can be heard through closed doors)? 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 Specify any problems Hx of Preganancy in last 3 No 04/29/25 10:09 Months Nurse Filling Out Transfusion DSCHRIBER 04/29/25 10:09 & Questions: Date: 04/29/25 04/29/25 10:09 Time: 10:10 04/29/25 10:09 Patient unable to answer at this time (ie. confused, unrespo /Reproduction History /Reproductive History - tinsmith helper: /Reproductive Hx- tinsmith helper Hx Now No 04/29/25 10:09 Gestational Age (in weeks): EDC: Hx Hx Para Hx Section SAB No 04/29/25 10:09 Active Medications Active Medications: Current Medications Generic Name Dose Route Start Last Admin Trade Name Freq PRN Reason Stop Dose Admin Cefazolin Sodium 3 gm/ Sodium 115 mls @ 200 mls/hr 05/13/25 11:45 Chloride IV 05/13/25 12:19 INTRAOP ONE Lactated Ringer's 1,000 mls @ 15 mls/hr 05/13/25 09:45 IV .Q48H CINDY PFSH Medical History Post-menopausal High cholesterol Leg cramps History of Holter monitoring Hypertension Umbilical hernia TIA (transient ischemic attack) FH: mastectomy Wears glasses Cancer Non-smoker Breast calcification, left Home Medications ?Medication ?Instructions ?Recorded ?Last Taken ?Type triamterene 37.5 1 cap PO DAILY 03/26/24 Unknown History mg-hydrochlorothiazide 25 mg capsule anastrozole 1 mg tablet 1 mg PO DAILY #90 TABLETS 04/16/24 Unknown Rx aspirin 81 mg tablet,delayed 81 mg PO QDAY 10/08/24 Unknown History release atorvastatin 40 mg tablet 40 mg PO QHS 10/08/24 Unknown History losartan 25 mg tablet 25 mg PO QDAY 10/08/24 Unknown History Allergy/AdvReac Type Severity Reaction Status Date / Time No Known Allergies Allergy Verified 04/29/25 10:07 Family History Father Diabetes Heart disease CAD (coronary artery disease) CVA (cerebral vascular accident) Mother Breast cancer Diabetes CAD (coronary artery disease) Surgical History S/P left mastectomy Hx of breast biopsy History of partial mastectomy of left breast Social History household members: spouse current occupational status: employed current occupation: [employer] Smoking Status: Never smoker alcohol intake: never substance use type: does not use seatbelt use: always do you feel safe at home: Yes additional social history: - Adolfo- Retired Review of Systems (Anesthesia) ROS Narrative System reviewed and no additional complaints, except as documented.
[2025-05-13] MEDS: Lactated Ringers 1,000 ML 15 ML IV ×2 (09:52→11:57)
--- NOTE | 2025-05-13 10:13 | PCM.HP.BLA ---
History and Physical Date of Admission: 05/13/25 Intake Vital Signs 12/18/2511:45 04/08/2513:50 04/16/2512:53 Height 5 ft 2 in 5 ft 2 in 5 ft 2 in Weight: 272 lb 6 oz 272 lb BMI 49.8 49.7 BP 136/76 H 138/79 H Blood Pressure Location Lt brachial Rt brachial Position Sitting Sitting Respiration 18 16 Pulse 71 Pulse Source Monitor Temp 97.2 F L Pulse Oximetry (%) 100 Oxygen Delivery Method room air Intake Visit Reasons: UPDATE H&P - HERNIA Chief Complaint: update H&P Range Manager Required: No Is patient in pain?: No Allergies No Known Allergies Allergy (Verified 04/16/25 12:53) Medications ?Medication ?Instructions ?Recorded ?Confirmed ?Type triamterene 37.5 1 cap PO DAILY 03/26/24 04/16/25 History mg-hydrochlorothiazide 25 mg capsule anastrozole 1 mg tablet 1 mg PO DAILY #90 TABLETS 04/16/24 04/16/25 Rx aspirin 81 mg tablet,delayed 81 mg PO QDAY 10/08/24 04/16/25 History release atorvastatin 40 mg tablet 40 mg PO DAILY 10/08/24 04/16/25 History losartan 25 mg tablet 25 mg PO QDAY 10/08/24 04/16/25 History Have you fallen in the past year?: No PFSH Medical History FH: mastectomy Breast calcification, left Umbilical hernia TIA (transient ischemic attack) Abnormal uterine bleeding (AUB) Wears glasses Cancer Non-smoker Surgical History S/P left mastectomy Hx of breast biopsy History of partial mastectomy of left breast No pertinent past surgical history Family History Father Diabetes Heart disease CAD (coronary artery disease) CVA (cerebral vascular accident) Mother Breast cancer Diabetes CAD (coronary artery disease) Social History household members: spouse current occupational status: employed current occupation: [employer] Smoking Status: Never smoker alcohol intake: never substance use type: does not use seatbelt use: always do you feel safe at home: Yes additional social history: - Adolfo- Retired HPI HPI HPI: Patient is a 55-year-old female who is here to update her H&P for surgery for an umbilical hernia. I discussed this with her during her last visit. She notes no changes with the hernia. ROS General General: Yes breast cancer; No weight change, appetite, fatigue, colon cancer or weakness HEENT HEENT: No difficulty swallowing, eye injury, eye surgery, swollen glands or hoarseness Endo Endocrine: No thyroid disease, diabetes mellitus, thyroid cancer, Hair loss, heat intolerance or cold intolerance Skin Skin: No rash or changing moles Musc Musculoskeletal: No back problems, arthritis, rheumatoid arthritis, gout or joint pain Cardio Cardiovascular: No murmur, pacemaker, heart disease, atrial fibrillation, high blood pressure, heart attack, heart stent, palpitations, shortness of breath with exertion or chest pain Psych Psychiatric: No depression, anxiety or hearing voices Resp Respiratory: No shortness of breath, No sleep apnea, No cough, No COPD, No asthma, No emphysema and No wheezing Gastro Gastrointestinal: No abdominal pain, No nausea or vomiting, No diarrhea, No constipation, No blood in stool, No acid reflux, No hemorrhoids, No ulcers, No gallbladder problem and No black,tarry stools Ismael Hematologic: Yes blood thinners, No blood disorders, No bleeding, No anemia and No blood clots Additional Details: baby aspirin Neuro Neurologic: Yes as per HPI (hx stroke), No numbness, No tingling and No weakness Exam Const General: cooperative Orientation: alert and oriented x3 HENMT Head: normal to inspection Neck Neck: normal visual inspection and full ROM Chest Chest palpation & inspection: normal inspection of the chest Resp Effort & Inspection: normal respiratory effort Auscultation: clear to auscultation bilaterally Cardio Rate: regular rate Rhythm: regular rhythm GI Inspection: non-distended Palpation: soft, hernia umbilical and nontender Skin General: no rashes or lesions noted Neuro General: patient alert and patient oriented x3 Extrem General: full ROM Psych Appearance: grossly normal Mental Status: mental status grossly normal Assessment and Plan Assessment and Plan (1) Umbilical hernia: Status: Acute Qualifiers: Obstruction and gangrene presence: without obstruction or gangrene Qualified Code(s): K42.9 - Umbilical hernia without obstruction or gangrene Plan: The patient has a large umbilical hernia which is reducible. I discussed again robotic assisted laparoscopic umbilical hernia repair with mesh. I discussed the procedure with her as well as the risks. I discussed the risks including but not limited to bleeding, infection, injury to underlying organ such as bowel. Patient understands the risks and is willing to proceed. She will hold her aspirin for 5 days prior to her surgery. Magdiel Holm MD Pager: [facility] [address] [place] [address], [address] [place] [phone] Office: I have examined the patient and the H&P has been reviewed. There are no clinical changes since date of exam.
[2025-05-13] MEDS: Lidocaine 1% (5 ml sdv) 5 ML Vial IV (10:21)
[2025-05-13] MEDS: fentaNYL 100 MCG/2 ML Ampul IV (10:22)
[2025-05-13] MEDS: Midazolam 2 MG/2 ML Syringe IV (10:22)
[2025-05-13] MEDS: Cefazolin 1 GM/5 ML Vial 3 GM IV (10:28)
--- NOTE | 2025-05-13 11:45 | HERN_PTH ---
PATIENT: MELANIE CLARK [place] [facility] [place][id number] AGE/SX: 55/F ROOM: RE05/13/[address]: Dr. Magdiel Holm MD : 1970 BED: DIS: 05/13/2025 SPEC #: [id number] RECD: 05/13/25 14:19 STATUS: LAMONT REMarii #: [id number] ELLI: 05/13/25 11:[address]: Magdiel Holm DEPT: SURGICAL PATHOLOGY RECD BY: Burt Hdez ENTERED: 05/13/25 15:43 SP TYPE: Hernia OTHR DR: Dr. Jessica Miller, DO Tissues: A - HERNIA Procedures: Surgery Specimen Level II HEADER OPERATION: Robotic umbilical hernia with mesh PRE-OP DIAGNOSIS: Umbilical hernia TISSUE SUBMITTED: A- Hernia sac MICROSCOPIC DIAGNOSIS A. Umbilical region, hernia sac, laparoscopic robotic excision: - Fibroadipose membranous tissue partially covered by benign mesothelium, consistent with hernia sac. MICROSCOPIC DESCRIPTION Slides are reviewed. GROSS DESCRIPTION A. Received in formalin labeled with the patient's name and date of . Designated as hernia sac is a hicks-pink to white, soft and wrinkled to fibrotic, irregular portion of semimembranous tissue with attached, lobulated to congested soft tissue, collectively measuring 6.3 x 5.5 x 2.3 cm. Associate Consulting Engineer sections are submitted in 1 cassette. DE 05/13/2025 CPT:96775
--- NOTE | 2025-05-13 12:10 | OP.PCM_ITS ---
Operative Report (Standard) Operative Information Date of Procedure: 05/13/25 Pre-Operative Diagnosis: Umbilical hernia Post-Operative Diagnosis: Umbilical hernia 4 cm Surgery/Procedure Performed: Robotic assisted laparoscopic umbilical hernia repair with mesh stonemason helper: Yes Biztalk Software Developer: Jeffy Haynes Tasks completed by mate first: Opening and Closing Type of Anesthesia: General/Regional RN Documented Start/Stop Times: Operation Date: 05/13/25 11:45 Case Time Into Pre-Op 05/13/25 09:31 Out of Pre-Op 05/13/25 10:15 Anesthesia Start 05/13/25 10:19 Into Room 05/13/25 10:19 Procedure Start 05/13/25 10:41 Procedure End 05/13/25 12:06 Procedure Start Time: : Procedure Stop Time: 12:06 Select all DRAINS/GRAFTS/IMPLANTS that apply: Implanted device Implanted device details: [address] mesh Estimated Blood Loss: 5 Specimen collected: Yes Description of specimen(s) removed: Hernia sac Description of surgery: Patient was brought back to the operating room and general anesthesia was induced. The abdomen was prepped and draped in the usual sterile fashion. An incision was made in the left upper quadrant and a Veress needle was inserted and a drop test was performed. The Veress needle was then used to insufflate the abdomen to 15 mmHg and the Veress needle was removed and a port was placed. Camera was placed through the port and there were no injuries from entry. Another 8 mm port was placed in the left lower quadrant as well as the left mid abdomen. The robot was then docked. The hernia contents were reduced. Next an area between the fascia and the hernia sac was divided and the hernia sac was reduced and removed and removed through bag. Once the hernia sac was gone the defect was measured and was approximately 4 cm. The defect was reapproximated using an oh strata fix unidirectional suture. Next an [address] mesh with echo positioning device was selected. The left upper quadrant incision was upsized to a 12 port and the mesh was placed into the abdomen. A small omaira was made at the umbilicus and the Stanton Arrieta needle was inserted through this and was used to grasp the echo positioning device and bring it out. The balloon was inflated and clamped. Next the mesh was sutured to the anterior abdominal wall using a running Vicryl suture. The balloon was then removed in its entirety. The abdomen was then allowed to desufflate and the ports were removed. The incisions were injected with local anesthetic and closed with interrupted 4-0 Monocryl sutures. Steri-Strips and bandages were applied. Patient was brought to PACU in stable condition. Surgical Findings: Umbilical hernia Complications Complications: No Admit VTE Documentation VTE Mechan Device Prophylaxis: SCD's
--- NOTE | 2025-05-13 12:18 | DCINST_ITS ---
Discharge Instructions Diet Discharge Diet: Light diet - advance as tolerated Activity Discharge Activity: May Not Drive (for 2-3 days or while taking narcotic pain meds.) and May Shower (with the bandage in place 1-2 days after surgery.) Lifting Restrictions: 20 pounds for 6 weeks Additional Activity Instructions:: Climbing stairs is fine, walking is encouraged. Sitting in bed may be uncomfortable. Sitting up using your lateral muscles (sitting up sideways) is usually more comfortable. Do not drive, work heavy equipment or sign legal documents for 24 hours. Pain medications may cause nausea, you should typically eat light foods as you take your pain medications. Pain medications may also cause constipation. If you have difficulty with this, discuss with your doctor. Alternate ibuprofen and Tylenol for pain control, oxycodone for breakthrough pain. Dressing / Incision Call your doctor if your incision/area has: Continuous Slow Oozing, Sudden Increased Bleeding, Increased Pain/ Swelling, Increased Redness and Foul Smelling Discharge Call your doctor if you observe: Fever of 101 or Higher Suture Line Care: Avoid Pulling/Pushing and Avoid Pinching/Bending Remove Dressing in: 2 days (Remove clear bandages in 2 days, remove Steri-Strips in 7 to 10 days.) Cleanse incision/area with: Soap & Water Follow Up Care Please Follow Up With: Magdiel Holm MD When: Please call to schedule 2 week follow up appointment. [phone] Test Results: Test results from this visit will be discussed in further detail at your follow- up appointment, if applicable. Discharge Plan Admission Attending Provider: Magdiel Holm Primary Care Provider: Jessica Miller Instructions Print Language: [place] Discharge Orders/Prescriptions Prescriptions: New oxycodone 5 mg Tablet 5 - 10 mg PO Q4H PRN PRN (Reason: Pain Score 4-10) 5 Days Qty: 14 0RF No Action atorvastatin 40 mg tablet 40 mg PO QHS losartan 25 mg tablet 25 mg PO QDAY aspirin 81 mg tablet,delayed release (DR/EC) 81 mg PO QDAY triamterene-hydrochlorothiazid 37.5-25 mg capsule 1 cap PO DAILY anastrozole 1 mg tablet 1 mg PO DAILY Qty: 90 3RF Referrals / Follow Up: Jessica Miller DO [Primary Care Provider, Family Practice] Disposition Disposition (needs filled in before D/C Order can be placed): Home, Self Care
--- NOTE | 2025-05-13 12:21 | PCM.POST.ANE ---
Anesthesia: Postop Eval I Current Vital Signs Temperature: 97.4 F Pulse Rate: 76 Blood Pressure: 144/87 Respiratory Rate: 16 Pulse Ox: 96 Oxygen Delivery Method: Nasal Cannula Oxygen Flow Rate (L/min): 4 Assessment Airway patent: Yes Spontaneous unlabored respirations: Yes Mental status: Awake and Calm nausea: No Vomiting: No Anesthesia Complication: No Fluid Hydration Crystalloid volume administer (ml): 1,100 Total IV fluid infused: 1,100 Progress Note Anesthesia document: Postop Eval 1 completed: Yes
--- NOTE | 2025-05-13 12:35 | POSTOPAN2_ITS ---
Anesthesia Postop Eval I Sum Postop Eval Completion status Anesthesia document: Postop Eval 1 completed: Yes Anesthesia Postop Eval I Summary Anesthesia Postop Eval I Summary: Anesthesia Postop Eval I: Assessment Summary Airway patent Yes 05/13/25 12:22 [email or web address] Spontaneous unlabored Yes 05/13/25 12:22 [email or web address] respirations Mental status Awake,Calm 05/13/25 12:22 [email or web address] nausea No 05/13/25 12:22 [email or web address] Vomiting No 05/13/25 12:22 [email or web address] Anesthesia Postop Eval I: Fluid Summary Crystalloid volume administer 1,100 05/13/25 12:22 [email or web address] (ml) Colloids volume administered ( ml) Blood Product volume administered (ml) Total IV fluid infused 1,100 05/13/25 12:22 [email or web address] Anesthesia Postop Eval I: Summary Notes Anesthesia Complication No 05/13/25 12:22 [email or web address] Anesthesia Complication Comment: Post-operative progress note Anesthesia: Postop Eval II Evaluation Mental status: Awake Pain Level: 3 nausea: No Vomiting: No
--- NOTE | 2025-05-13 12:35 | PCM.POSTANE2 ---
Anesthesia Postop Eval I Sum Postop Eval Completion status Anesthesia document: Postop Eval 1 completed: Yes Anesthesia Postop Eval I Summary Anesthesia Postop Eval I Summary: Anesthesia Postop Eval I: Assessment Summary Airway patent Yes 05/13/25 12:22 DIRECTOR RECORDS MANAGEMENT.[email or web address] Spontaneous unlabored Yes 05/13/25 12:22 DIRECTOR RECORDS MANAGEMENT.JDEF respirations Mental status Awake,Calm 05/13/25 12:22 DIRECTOR RECORDS MANAGEMENT.JDEF nausea No 05/13/25 12:22 DIRECTOR RECORDS MANAGEMENT.JDEF Vomiting No 05/13/25 12:22 DIRECTOR RECORDS MANAGEMENT.JDEF Anesthesia Postop Eval I: Fluid Summary Crystalloid volume administer 1,100 05/13/25 12:22 DIRECTOR RECORDS MANAGEMENT.JDEF (ml) Colloids volume administered ( ml) Blood Product volume administered (ml) Total IV fluid infused 1,100 05/13/25 12:22 DIRECTOR RECORDS MANAGEMENT.JDEF Anesthesia Postop Eval I: Summary Notes Anesthesia Complication No 05/13/25 12:22 DIRECTOR RECORDS MANAGEMENT.JDEF Anesthesia Complication Comment: Post-operative progress note Anesthesia: Postop Eval II Evaluation Mental status: Awake Pain Level: 3 nausea: No Vomiting: No
== END 2025-05-13 15:32 | disposition home or self-care (01) ==
LOC: SDC 09:16 → AC 09:16
PROVIDERS: PCP Family Medicine; Referring Provider Surgery; Visit Provider Surgery
PROC: (CPT 49593; principal; 2025-05-13 11:25)
DX: K42.9 Umbilical hernia without obstruction or gangrene (principal); Z79.82 Long term (current) use of aspirin; Z79.899 Other long term (current) drug therapy; Z86.73 Personal history of transient ischemic attack (TIA), and cerebral infarction without residual deficits
CPT/HCPCS: 49593; S2900; 00830; 88302; 93005; J2405